=== PATIENT | female | born 1990 | race Caucasian/White ===

== ENCOUNTER 2018-07-10 10:05 | Outpatient (CLI) | payer OTHER, SELFPAY ==
--- NOTE | 2018-07-10 10:36 | PC.NURSE ---
HERE FOR [facility] PRE EMPLOYMENT PHYSICAL
== END 2018-07-10 11:24 | disposition home or self-care (01) ==
PROVIDERS: Visit Provider Nurse Practitioner Family
DX: Z00.00 Encounter for general adult medical examination without abnormal findings (principal)

== ENCOUNTER → 2019-04-30 07:42 | Outpatient (CLI) | payer OTHER, SELFPAY ==
--- NOTE | 2019-04-30 07:59 | CT_ITS ---
PROCEDURE: CT SINUS WO CON CLINICAL HISTORY: POST NASAL DRIP,CHRONIC RHINITIS Chronic sinusitis COMPARISON: No exams were available for comparison TECHNIQUE: Axial images obtained with sagittal and coronal reformats. All CT scans at the facility use one or more dose reduction, viz: automated exposure control, ma/kV adjustment per patient size (including targeted exams where dose is matched to indication, i.e. head), or iterative reconstruction technique. FINDINGS: There is a small opacified air cell in the right frontal ethmoid region. There is a somewhat lobular area of mucosal thickening involving the floor the left maxillary sinus measuring 2.6 cm AP and 2 cm transverse and 1.7 cm cephalad caudad which may represent a retention cyst. No air-fluid levels are evident. There is mild rightward nasal septal deviation. There are small bilateral autumn bullosa. The ostiomeatal complexes are patent. No bony destructive lesion. No nasal mass evident. The orbits have an unremarkable appearance. Scattered small nodes are present in the neck. The TMJs are unremarkable IMPRESSION: 1. Left maxillary sinus retention cyst. 2. Rightward nasal septal deviation with small bilateral autumn bullosa 3. Minimal opacification of the right frontal ethmoid sinus. Dictated by: Romeo Pabon MD 05/01/2019 08:58 Electronically signed by Romeo Pabon MD in [place] 05/01/2019 08:58
== END ==
PROVIDERS: Visit Provider Allergy & Immunology
DX: J32.9 Chronic sinusitis, unspecified (principal)
CPT/HCPCS: 70486

== ENCOUNTER → 2019-07-06 10:03 | Outpatient (POV) | payer OTHER, SELFPAY | PROVIDERS: Visit Provider Otolaryngology | DX: Z00.00 Encounter for general adult medical examination without abnormal findings (principal) ==

== ENCOUNTER 2020-11-18 09:02 | Emergency (ER) | payer BC, SELFPAY ==
--- NOTE | 2020-11-18 09:28 | HMH.EDUTC ---
[facility] [place] Disposition Clinical Impression: Right conjunctivitis Qualifiers: Conjunctivitis type: acute Acute conjunctivitis type: unspecified Qualified Code(s): H10.31 - Unspecified acute conjunctivitis, right eye Disposition: Home, Self-Care Condition on Discharge: Good Instructions: Conjunctivitis, DI for Conjunctivitis Additional Instructions: Use the eye drops as directed. Strict hand washing in the house hold, because conjunctivitis is very contagious. Follow up with your regular doctor. GO TO THE ER FOR ANY WORSENING SYMPTOMS OR CONCERNS Prescriptions: Sulfacetamide Sodium [Bleph-10] 1 drp EYE-BOTH Q3H 7 Days #1 bottle Transmission Status: Received by [facility] Referrals: Provider,Referral, [Primary Care Provider] - Time of Disposition: 09:33 Medical Decision Making - Medical Records Medical records reviewed: No: I reviewed the patient's medical records. - William Inquiry Pt receiving controlled substance: No Vital Signs: 11/18/20 09:41 11/18/20 09:45 Temperature 97.8 F 97.8 F Temperature Source Oral Pulse Rate 85 Pulse Rate [Left] 85 Respiratory Rate 17 17 Blood Pressure 116/85 Blood Pressure [Right Arm] 116/85 Blood Pressure Mean [Right Arm] 95 02 Sat by Pulse Oximetry 97 [facility] [place] HPI - General Stated complaint: red discharge right eye Time Seen by Provider: 11/18/20 09:28 - History of Present Illness Provider Complaint: She states that she woke up this morning with her right eye matted together. Since then she has been having clear drainage from the eye. She denies any eye pain. She denies any foreign body in the eye. She states that she is seeing normally, other than the increased drainage from that eye. - Related Data Home Medications Medication Instructions Recorded Confirmed levomefolate calcium 7.5 mg tablet 7.5 mg PO DAILY 03/15/19 03/15/19 albuterol sulfate 90 mcg/actuation INHALATION 07/20/19 07/20/19 aerosol inhaler escitalopram oxalate 20 mg tablet 10 mg PO DAILY tab 07/20/19 07/20/19 fluticasone propionate 50 INTRANASAL 07/20/19 07/20/19 mcg/actuation nasal spray,suspension levomefolate calcium 15 mg tablet 15 mg PO DAILY tab 07/20/19 07/20/19 omeprazole 20 mg capsule,delayed 20 mg PO DAILY cap 07/20/19 07/20/19 release Previous Rx's Medication Instructions Recorded amoxicillin 500 mg capsule 500 mg PO Q12H 10 Days #20 cap 07/20/19 prednisone 20 mg tablet 20 mg PO BID PRN 5 Days #10 tab 07/20/19 Sulfacetamide Sodium [Bleph-10] 1 drp EYE-BOTH Q3H 7 Days #1 bottle 11/18/20 Allergies Allergy/AdvReac Type Severity Reaction Status Date / Time NO KNOWN ALLERGIES Allergy Uncoded 03/15/19 12:16 [facility] History - Hepatitis A Screen Attestation statement:: This patient has been screened for Hepatitis A risk factors. I have reviewed the patient's past medical history: Yes Medical History: Reports:: Anxiety, Asthma, Depression, Gastroesophageal Reflux Disease(GERD) Denies:: Diabetes Mellitus Type 1, Diabetes Mellitus Type 2 Other Medical History: Reports: Other Other Surgeries: Yes: Other Fractures: No Comment: repair of wrist fracture. - Social History Smoking Status: Never smoker Alcohol Intake: never Substance Use Type: denies use Occupational Status: employed Housing: house - Psychiatric History Pschychiatric History:: Reports:: Anxiety, Depression Family Hx:: Hypertension, Cancer, Stroke, Hyperlipidemia, Diabetes ROS Obtained: Yes All systems reviewed & no additional complaints - Constitutional Constitutional: Denies chills, Denies fever(s) - Eyes Eyes: Reports as per HPI, Denies blurry vision, Denies change in vision, Denies diplopia - ENT Ears, Nose, Mouth, and Throat: Denies sore throat - Cardiovascular Cardiovascular: Denies chest pain - Respiratory Respiratory: Denies chest congestion, Denies cough, Denies dyspnea, Denies stridor, Denies wheezing Physical Exam - General General nery
[2020-11-18 09:41] VITALS: BP 116/85; PULSE 85; RESP 17; TEMP 36.6; O2SAT 97; BMI 26.4
[2020-11-18 09:45] VITALS: BP 116/85; PULSE 85; RESP 17; TEMP 36.6; O2SAT 97
== END 2020-11-18 09:45 | disposition home or self-care (01) ==
PROVIDERS: Emergency Provider Nurse Practitioner Family
DX: H10.31 Unspecified acute conjunctivitis, right eye (principal)
CPT/HCPCS: 99202; G0463

== ENCOUNTER 2021-04-27 09:03 | Emergency (ER) | payer BC, SELFPAY ==
[2021-04-27 09:23] VITALS: BP 134/94; PULSE 101; RESP 16; TEMP 36.8; O2SAT 99; BMI 25.8
[2021-04-27 09:25] VITALS: BP 134/94; PULSE 101; RESP 16; TEMP 36.8
[2021-04-27 09:28] LABS: UTC Strep Screen (Rapid) Negative (Negative)
--- NOTE | 2021-04-27 09:38 | HMH.EDUTC ---
[facility] [place] Clinical Impression: Pharyngitis Qualifiers: Pharyngitis/tonsillitis etiology: unspecified etiology Qualified Code(s): J02.9 - Acute pharyngitis, unspecified Disposition: Home, Self-Care Condition on Discharge: Good Instructions: Strep Throat, DI for Strep Throat Additional Instructions: *Monitor Temp, Over the counter Motrin or Tylenol as directed/as needed Tylenol every 4 hours and Motrin every 6 hours (as long as your family doctor has told you that you can take it) for fever or pain. and straight to ER if unable to lower temp less than 101.0 after medication given *Warm salt water gargles may help to soothe the throat *Throat Lozenges *Warm fluids like tea with honey may help to soothe the throat *Sleep elevated *Humidifier/Vaporizer *Flonase 2 sprays in each nostril daily but be aware that it may take 2-3 days before you notice improvement Take medication as prescribed Your throat swab was sent for culture. Those results are typically sent to your primary care. Be sure to follow up in 2-3 days with your family doctor/primary care physician if no improvement so they can review those result and treat if necessary. If you don?t have a primary care doctor, I recommend you get one but in the mean time, you will have to return to a walk in clinic Follow up IMMEDIATELY for new or worsening symptoms or no Noticeable improvement over the next 48-72 hours. 911 for difficulty breathing or swallowing Prescriptions: Fluticasone Propionate [Flonase 50mcg nasal spray 16gm] 1 spr NS DAILY #1 each Transmission Status: Pending to [facility] Cefdinir [Omnicef 300mg Capsule] 300 mg PO BID #20 cap Transmission Status: Pending to [facility] Referrals: Provider,Referral, [Primary Care Provider] - As needed Time of Disposition: 09:46 Medical Decision Making - William Inquiry Pt receiving controlled substance: No William was queried for this patient: No Vital Signs: 04/27/21 09:23 04/27/21 09:25 Temperature 98.2 F 98.2 F Temperature Source Oral Pulse Rate 101 H Pulse Rate [Left] 101 H Respiratory Rate 16 16 Blood Pressure 134/94 H Blood Pressure [Right Arm] 134/94 H Blood Pressure Mean [Right Arm] 107 02 Sat by Pulse Oximetry 99 - Lab Data Lab results reviewed: Yes: I reviewed the patient's lab results. Lab Results 04/27/21 09:26: Strep Scn Rapid Clinic Negative Orders (Tests/Meds): ORDERS Category Date Time Status Strep Screen Confirmation Stat Micro 04/27/21 09:26 Received [facility] [place] - General Stated complaint: sore throat, cough Time Seen by Provider: 04/27/21 09:38 Mode of Arrival: Ambulatory Source of Information: Patient Limitations: No Limitations Description of Symptoms (Recalled from Triage Doc. by RN): sore throat HEENT Symptoms (Recalled from RN notes): Yes (sore throat) Resp Symptoms (Recalled from RN notes): No Skin Symptoms (Recalled from RN notes): No MS Symptoms (Recalled from RN notes): No Functional Status (Recalled from RN notes): na - History of Present Illness Provider Complaint: Patient states that she has been having sore scratchy throat for a couple days then she noticed some white patchy like areas on the her throat and thinks she may have strep throat so she came in to get tested - Related Data Home Medications Medication Instructions Recorded Confirmed levomefolate calcium 7.5 mg tablet 7.5 mg PO DAILY 03/15/19 03/15/19 albuterol sulfate 90 mcg/actuation INHALATION 07/20/19 07/20/19 aerosol inhaler escitalopram oxalate 20 mg tablet 10 mg PO DAILY tab 07/20/19 07/20/19 fluticasone propionate 50 INTRANASAL 07/20/19 07/20/19 mcg/actuation nasal spray,suspension levomefolate calcium 15 mg tablet 15 mg PO DAILY tab 07/20/19 07/20/19 omeprazole 20 mg capsule,delayed 20 mg PO DAILY cap 07/20/19 07/20/19 release Previous Rx's Medication Instructions Recorded amoxicillin 500 mg capsule 500 mg PO Q12H
== END 2021-04-27 09:55 | disposition home or self-care (01) ==
PROVIDERS: Emergency Provider Nurse Practitioner
DX: J02.9 Acute pharyngitis, unspecified (principal); K21.9 Gastro-esophageal reflux disease without esophagitis; F41.8 Other specified anxiety disorders
CPT/HCPCS: 87880; 99202; G0463

== ENCOUNTER 2021-12-22 07:59 | Emergency (ER) | payer BC, SELFPAY ==
[2021-12-22 08:00] VITALS: BP 134/92; PULSE 91; RESP 18; TEMP 36.8; O2SAT 100; BMI 26.6
[2021-12-22 08:23] LABS: Apearance,Urine Clear (Clear); Bilirubin,Urine Negative (Negative); Blood, Urine Negative (Negative); Color,Urine Yellow (Yellow); Glucose,Urine (UA) Negative (Negative); Ketones,Urine Negative (Negative); PH,Urine 5.5 (5.0-8.5); Protein,Urine Negative (Negative); Specific Gravity, Urine 1.005 (1.005-1.030); UTC Leukocyte Esterase,Urine Trace (Negative); UTC Nitrate,Urine Negative (Negative); Urobilinogen,Urine 0.2 EU/dl (0.2)
[2021-12-22 08:31] VITALS: BP 134/92; PULSE 91; RESP 18; TEMP 36.8; O2SAT 100
--- NOTE | 2021-12-22 09:08 | HMH.EDUTC ---
[facility] [place] Dis[place] Clinical Impression: Burn from the sun UTI (urinary tract infection) Qualifiers: Urinary tract infection type: acute cystitis Hematuria presence: without hematuria Qualified Code(s): N30.00 - Acute cystitis without hematuria Disposition: Home, Self-Care Condition on Discharge: Good Instructions: Urinary Tract Infection, How to Avoid Sunburn, DI for Sunburn Additional Instructions: [place] 1.Place a cool compress on sunburned skin for immediate sunburn relief. 2. Take a cool shower or bath to cool your sunburned skin. Check out these natural bath therapies to soothe sunburn pain and other symptoms. 3. Use lotions that contain aloe Vera to soothe and moisturize sunburnt skin. Some aloe products contain lidocaine, an anesthetic that can help relieve sunburn pain. Aloe Vera is also a good moisturizer for peeling skin. 4. Hydrate: Drink lots of water, juice, or sports drinks. Your skin is dry and dehydrated. Replacing lost body fluids will help your skin heal from sunburn more quickly. 5. apply cream twice a day UTI 1 increase fluid intake 2. void after intercourse 3. wear cotton underwear 4 take antibiotics as ordered Prescriptions: cephALEXin [Cephalexin 500mg Tab] 500 mg PO BID 7 Days #14 tab Transmission Status: Pending to [id number] predniSONE [Prednisone 20mg Tab] 20 mg PO BID #10 tab Transmission Status[facility] Referrals: Provider,Referral, [Primary Care Provider] - Time of Disposition: 09:20 Medical Decision Making - William Inquiry Pt receiving controlled substance: No Vital Signs: 12/22/21 08:00 12/22/21 08:31 Temperature 98.2 F 98.2 F Temperature Source Oral Pulse Rate 91 H Pulse Rate [Left Brachial] 91 H Respiratory Rate 18 18 Blood Pressure 134/92 H Blood Pressure [Left Arm] 134/92 H Blood Pressure Mean [Left Arm] 106 Blood Pressure Source [Left Arm] Automatic Cuff Blood Pressure Position [Left Arm] Sitting 02 Sat by Pulse Oximetry 100 Oxygen Delivery Method Room Air - Lab Data Lab Results 12/22/21 08:22: Urine Color Yellow, Urine Appearance Clear, Urine pH 5.5, Ur Specific [place] 1.005, Urine Protein Negative, Urine Glucose (UA) Negative, Urine Ketones Negative, Urine Blood Negative, Urine Nitrate Negative, Urine Bilirubin Negative, Urine Urobilinogen 0.2, Ur Leukocyte Esterase Trace Orders (Tests/Meds): ED MEDICATIONS Discontinued Medications Generic Name Dose Route Start Last Admin Trade Name Shila PRN Reason Stop Dose Admin Silver Sulfadiazine 1 gm 12/22/21 08:33 Silver Sulfadiazine Cream 50gm TP 12/22/21 08:34 ONCE ONE ORDERS Category Date Time Status Urine Culture Stat Micro 12/22/21 08:22 Received [facility] [place] HPI - General Chief complaint: Urgent [facility] Stated complaint: sunburn Time Seen by Provider: 12/22/21 08:25 Mode of Arrival: Ambulatory Source of Information: Patient Limitations: No Limitations Description of Symptoms (Recalled from Triage Doc. by RN): PATIENT C/O SUNBURN SINCE FRIDAY, WHICH HAS GOTTEN WORSE TO RLE. SHE ALSO THINKS SHE HAS A UTI HEENT Symptoms (Recalled from RN notes): No Resp Symptoms (Recalled from RN notes): No Skin Symptoms (Recalled from RN notes): Yes MS Symptoms (Recalled from RN notes): No Functional Status (Recalled from RN notes): WNL - History of Present Illness Provider Complaint: 31 yr old female presents for freq, urgency,painful urination and sunburn for 3 days but worse in swelling and redness to legs - Related Data Home Medications Medication Instructions Recorded Confirmed omeprazole 20 mg capsule,delayed 20 mg PO DAILY cap 07/20/19 12/22/21 release Cetirizine HCl [Zyrtec 10mg Tab*] 10 mg PO DAILY 12/22/21 12/22/21 Previous Rx's Medication Instructions Recorded cephALEXin [Cephalexin 500mg Tab] 500 mg PO BID 7 Days #14 tab 12/22/21 predniSONE [Prednisone 20mg 20 mg PO BID #10 tab 12/22/21
== END 2021-12-22 09:24 | disposition home or self-care (01) ==
PROVIDERS: Emergency Provider Nurse Practitioner Family
DX: L55.9 Sunburn, unspecified (principal); N39.0 Urinary tract infection, site not specified
CPT/HCPCS: 81003; 87086; 99212; G0463

== ENCOUNTER 2024-04-12 20:40 | Emergency (ER) | payer BC, SELFPAY ==
[2024-04-12] VITALS (7 sets, daily range): BP systolic 126–142; BP diastolic 89–105; PULSE 84–99; RESP 18; TEMP 36.4–36.8; O2SAT 96–99; BMI 25.8
--- NOTE | 2024-04-12 21:14 | CT_ITS ---
PROCEDURE INFORMATION: Exam: CT Abdomen And Pelvis Without Contrast Exam date and time: 04/12/2024 10:03 PM Age: 33 years old Clinical indication: Abdominal pain; Flank; Left; Additional info: L flank pain TECHNIQUE: Imaging protocol: Computed tomography of the abdomen and pelvis without contrast. Radiation optimization: All CT scans at this facility use at least one of these dose optimization techniques: automated exposure control; mA and/or kV adjustment per patient size (includes targeted exams where dose is matched to clinical indication); or iterative reconstruction. COMPARISON: CT ABDOMEN PELVIS WO CON 04/12/2024 10:03 PM FINDINGS: Lungs: No focal abnormalities at the lung bases. Esophagus: The esophagus is normal. Liver: The liver is normal. Gallbladder and biliary ducts: The gallbladder is normal. Pancreas: Pancreas appears normal. Spleen: Spleen is normal Adrenal glands: The adrenal glands appear normal. Kidneys and ureters: There is a 3 mm nonobstructing stone in the right kidney. Mild prominence of the intrarenal collecting structures and renal pelvis of the left kidney coronal image 1001/49. Stomach and bowel: Nonspecific bowel gas pattern. Retained stool in the colon. No secondary signs of appendicitis. Rounded high density in the stomach image 3/15. Appendix: See Stomach and bowel finding. Intraperitoneal space: Unremarkable. No free air. No significant fluid collection. Vasculature: Unremarkable. No abdominal aortic aneurysm. Lymph nodes: No free air or fluid or adenopathy. Urinary bladder: The bladder is normal. Reproductive: Enlarged uterus 10.5 x 10.8 x 10.6 cm. The uterus is markedly enlarged compared with 06/14/2019. Bones/joints: Unremarkable. No acute fracture. Soft tissues: Unremarkable. IMPRESSION: 1. No free air or fluid or adenopathy. 2. There is a 3 mm nonobstructing stone in the right kidney. 3. Enlarged uterus 10.5 x 10.8 x 10.6 cm. The uterus is markedly enlarged compared with 06/14/2019. MRI recommended to further delineate this finding and determine if this represents fibroids or a more aggressive process. 4. Mild prominence of the intrarenal collecting structures and renal pelvis of the left kidney coronal image 1001/49. There may be some extrinsic compression left ureter due to the large uterus which is eccentrically expanded towards the left with marked distortion of the bladder base image 3/96. 5. Nonspecific bowel gas pattern. Retained stool in the colon. No secondary signs of appendicitis. 6. Rounded high density in the stomach image 09/11. Clinical correlation for ingested high-density material.
--- NOTE | 2024-04-12 21:14 | CT_ITS ---
PROCEDURE INFORMATION: Exam: CT Lumbar Spine Without Contrast Exam date and time: 04/12/2024 10:06 PM Age: 33 years old Clinical indication: Low back pain TECHNIQUE: Imaging protocol: Computed tomography of the lumbar spine without contrast. Radiation optimization: All CT scans at this facility use at least one of these dose optimization techniques: automated exposure control; mA and/or kV adjustment per patient size (includes targeted exams where dose is matched to clinical indication); or iterative reconstruction. COMPARISON: CT ABDOMEN PELVIS WO CON 04/12/2024 10:03 PM FINDINGS: Bones/joints: No acute fracture. Normal alignment. No significant disc bulge or herniation. No severe spinal canal stenosis. No significant neural foraminal narrowing. Soft tissues: Unremarkable. IMPRESSION: No acute findings.
[2024-04-12] MEDS: KETOROLAC 30MG/ML VIAL 15 MG IV (21:35)
[2024-04-12] MEDS: ACETAMINOPHEN 500MG TAB 1000 MG PO (21:35)
[2024-04-12] MEDS: ONDANSETRON 4MG/2ML VIAL 4 MG IV (21:35)
[2024-04-12] MEDS: METHOCARBAMOL 500MG TABLET 500 MG PO (21:35)
[2024-04-12] MEDS: LIDOCAINE 5% TRANSDERMAL PATCH 1 EACH TP (21:35)
[2024-04-12 21:45] LABS: Basophils # 0.1 K/mm3 (0-0.2); Basophils % 0.5 % (0.1-2.0); Eosinophils # 0.1 K/mm3 (0.0-0.4); Eosinophils % 0.7 % (0.1-12.0); Hematocrit 39.6 % (37.0-47.0); Hemoglobin 13.8 g/dL (12.2-16.2); Lymphocytes # 1.5 K/mm3 (0.7-4.5); Lymphocytes % 12.3 % (10-50); Mean Corpuscular HGB Conc 34.8 g/dL (31.8-35.4); Mean Corpuscular Hemoglobin 31.6 pg (27.0-31.2); Mean Corpuscular Volume 90.8 fl (81-99); Mean Platelet Volume 7.6 fl (7.4-10.4); Monocytes # 0.5 K/mm3 (0.1-1.0); Monocytes % 4.3 % (1.7-9.3); Neutrophils # 10.1 K/mm3 (1.8-7.8); Neutrophils % 82.3 % (37.0-80.0); Platelet Count 316 K/mm3 (142-424); Red Blood Count 4.37 M/mm3 (4.20-5.40); Red Cell Distribution Width 14.1 % (11.5-17.5); White Blood Count 12.3 K/mm3 (4.8-10.8)
[2024-04-12 21:49] LABS: Albumin Level 4.9 g/dl (3.5-5.0); Chloride 103 mmol/L (98-107); Potassium 3.5 mmoL/L (3.5-5.1); Sodium 138 mmol/L (136-145)
--- NOTE | 2024-04-12 21:50 | ED_ITS ---
Discharge Plan Disposition Patient Disposition: Home, Self-Care Condition: Good Prescriptions Prescriptions: New ketorolac 10 mg tablet 10 mg PO Q8H PRN (Reason: pain) Qty: 14 0RF methocarbamol 750 mg tablet 750 mg PO Q8H PRN (Reason: pain) Qty: 20 0RF No Action omeprazole 20 mg capsule,delayed release(DR/EC) 20 mg PO DAILY Patient Comments: TAKE 1 CAPSULE BY MOUTH ONCE DAILY cetirizine 10 MG tablet 10 mg PO DAILY prednisone 20 MG tablet 20 mg PO BID Qty: 10 0RF cephalexin 500 MG tablet 500 mg PO BID 7 Days Qty: 14 0RF Referrals Follow up/Referrals: Ginger Sanchez, [Staff Physician] - See instructions Ac Schmidt [Primary Care Provider] - See instructions Activity Restrictions/Add. Instructions Additional Instructions/Restrictions: You were evaluated in the emergency department today. At this time, we feel that your back pain is related to musculoskeletal strain/sprain. Please crop picker your prescriptions at the pharmacy and take them as needed for symptoms. You may also take Tylenol every 4-6 hours at home as needed for pain. Follow-up closely with your primary care provider for reassessment. Also recommend close follow-up with gynecology, as you were found to have an enlarged uterus on CT scan. Clinical Impressions Clinical Impression: Acute left-sided low back pain, Groin pain, Bulky or enlarged uterus Stand Alone Forms Stand Alone Forms: Work/School Release Instructions Patient Instructions: DI for Low Back Pain Print Language Print Language: Tamazight Discharge ED Provider: Denisa Canseco General Adult HPI General Chief complaint: Back Pain/Injury Stated complaint: back/abd/pelvic spasms with pain Time Seen by Provider: 04/12/24 20:50 Mode of Arrival: Ambulatory Source of Information: Patient Limitations: No Limitations Description of Symptoms (Recalled from ER Triage Doc. by RN): pt reports approximately 1 hour ago she sat down on the toliet and felt a popping sensation in her laft flank now she is experiencing spasms in her back. she is also experiencing some vaginal pain but stated it feels like her normal menstrual symptoms as she is currently menstrating History of Present Illness HPI narrative: This patient is a 33-year-old female presenting to the emergency department for evaluation with concern for low back pain. Patient states that today, she had been having some groin pain which she felt was likely related to period cramps. She states that about an hour prior to arrival, she sat on the toilet and felt a popping sensation in her left flank. Now she is experiencing spasms in her back that are severe. The pain is so severe that she fell like she had to vomit and have a bowel movement, and she did vomit prior to arrival. She states she vomited up her entire meal. She also has some groin and vaginal pain which she states feels like her menstrual period symptoms. Pain is currently a 9 out of 10. She denies any fevers, chills, numbness, tingling, saddle anesthesia, incontinence, urinary retention, or other concerns. She is still able to ambulate. Related Data Home Medications ?Medication ?Instructions ?Recorded ?Confirmed omeprazole 20 mg capsule,delayed 20 mg PO DAILY GERD 07/20/19 12/22/21 release cetirizine 10 mg tablet 10 mg PO DAILY Allergy symptoms 12/22/21 12/22/21 Previous Rx's ?Medication ?Instructions ?Recorded cephalexin 500 mg tablet 500 mg PO BID 7 days #14 tabs 12/22/21 prednisone 20 mg tablet 20 mg PO BID #10 tabs 12/22/21 ketorolac 10 mg tablet 10 mg PO Q8H PRN pain #14 tabs 04/12/24 methocarbamol 750 mg tablet 750 mg PO Q8H PRN pain #20 tabs 04/12/24 Allergies Allergy/AdvReac Type Severity Reaction Status Date / Time No Known Allergies Allergy Verified 12/22/21 08:28 [facility] Disclaimer: The information contained in this section may have been updated after the patient was seen, as this information can be updated by other users. Social History Smoking Status: Never smoker second hand exposure: No alcohol intake: never substance use type: denies use current occupational status: other Travel in the last 8 weeks: None housing: house Other Medical History Have you received the Flu Vaccine for this season: Yes Have you received the Pneumonia Vaccine: No ROS Obtained: Yes All systems reviewed & no additional complaints except as documented Physical Exam General General appearance: alert and in no apparent distress Head Head exam: atraumatic and normocephalic Eye Eye exam: Present normal appearance, PERRL and EOMI ENT ENT exam: Present normal exam, normal oropharynx, mucous membranes moist and normal external ear exam Neck Neck exam: Present normal inspection, full ROM and trachea midline; Absent tenderness Chest Chest inspection: Present normal inspection and symmetric chest wall rise; Absent tenderness Respiratory Respiratory exam: Present normal lung sounds bilaterally; Absent respiratory distress, wheezes, stridor or accessory muscle use Cardiovascular Cardiovascular exam: Present regular rate and normal rhythm Abdominal Exam Abdominal exam: Present soft; Absent distention, tenderness or guarding Extremities Exam Extremities exam: Present normal inspection, full ROM and normal capillary refill; Absent tenderness or edema Back Exam Back exam: Present full ROM and CVA tenderness (L) Neurological Exam Neurological exam: Present alert, oriented X3, CN II-XII intact and normal gait; Absent motor sensory deficit Psychiatric Psychiatric exam: Present normal affect and normal mood Skin Skin exam: Present warm and dry Medical Decision Making Medical Records Medical records reviewed: Yes I reviewed the patient's medical records. Screening: Per USPSTF and CDC recommendations, given the prevalence of disease in our region, it is our hospital?s policy to screen for HIV and viral Hepatitis for all patients aged 18 and over and those with ongoing risk factors. William Inquiry Pt receiving controlled substance: No Vital Signs: 04/12/24 20:49 04/12/24 21:00 04/12/24 21:30 Temperature 97.6 F Temperature Source Oral Pulse Rate 92 H 89 Pulse Rate [Right] 99 H Respiratory Rate 18 Blood Pressure 136/98 H 141/105 H Blood Pressure [Right Arm] 134/99 H Blood Pressure Mean 107 Blood Pressure Mean [Right Arm] 110 02 Sat by Pulse Oximetry 99 99 97 Oxygen Delivery Method Room Air 04/12/24 22:30 04/12/24 23:00 04/12/24 23:28 Temperature Temperature Source Pulse Rate 87 84 89 Pulse Rate [Right] Respiratory Rate Blood Pressure 134/89 126/89 142/90 H Blood Pressure [Right Arm] Blood Pressure Mean Blood Pressure Mean [Right Arm] 02 Sat by Pulse Oximetry 98 96 97 Oxygen Delivery Method Lab Data Lab results reviewed: Yes I reviewed the patient's lab results. Lab Results 04/12/24 21:30: WBC 12.3 H, RBC 4.37, Hgb 13.8, Hct 39.6, MCV 90.8, MCH 31.6 H, MCHC 34.8, RDW 14.1, Plt Count 316, MPV 7.6, Neut % (Auto) 82.3 H, Lymph % (Auto) 12.3, Dale % (Auto) 4.3, Eos % (Auto) 0.7, Baso % (Auto) 0.5, Neut # (Auto) 10.1 H, Lymph # (Auto) 1.5, [place] # (Auto) 0.5, Eos # (Auto) 0.1, Baso # (Auto) 0.1, Sodium 138, Potassium 3.5, Chloride 103, Carbon Dioxide 28, Anion Gap 10.5, BUN 9, Creatinine 0.70, Estimated Creat Clear 142, Estimated GFR 98, Est GFR ( Amer) 118, Glucose 109 H, Calcium 9.6, Total Bilirubin 0.6, AST 32, ALT 27, Alkaline Phosphatase 71, Total Protein 8.1, Albumin 4.9, Globulin 3.2, Albumin/Globulin Ratio 1.5, Lipase 49, Serum HCG, Qual Negative 04/12/24 22:55: Urine Color Yellow, Urine Appearance Clear, Urine pH 6.5, Ur Specific [place] 1.010, Urine Protein Negative, Urine Glucose (UA) Negative, Urine Ketones Negative, Urine Blood 3+ A, Urine Nitrate Negative, Urine Bilirubin Negative, Urine Urobilinogen 0.2, Ur Leukocyte Esterase Negative, Urine RBC 10-20, Urine WBC 3-5, Ur Squamous Epith Cells 5-10, Urine Bacteria 1+ 04/12/24 21:30 04/12/24 21:30 Orders (Tests/Meds): ED MEDICATIONS Discontinued Medications Generic Name Dose Route Start Last Admin Trade Name Shila PRN Reason Stop Dose Admin Acetaminophen 1,000 mg 04/12/24 21:14 04/12/24 21:35 Acetaminophen 500mg Tab PO 04/12/24 21:15 1,000 mg ONCE ONE Administration Ketorolac Tromethamine 15 mg 04/12/24 21:14 04/12/24 21:35 Ketorolac 30mg/Ml Vial IV 04/12/24 21:15 15 mg ONCE ONE Administration Lidocaine 1 each 04/12/24 21:14 04/12/24 21:35 Lidocaine 5% Transdermal Patch TP 04/12/24 21:15 1 each ONCE ONE Administration Methocarbamol 500 mg 04/12/24 21:15 04/12/24 21:35 Methocarbamol 500mg Tablet PO 10/14/24 21:16 500 mg ONCE ONE Administration Ondansetron HCl 4 mg 04/12/24 21:14 04/12/24 21:35 Ondansetron 4mg/2ml Vial IV 04/12/24 21:15 4 mg ONCE ONE Administration ORDERS Category Date Time Status CT abdomen pelvis wo con Stat Cat Scan 04/12/24 21:[address] lumbar spine wo con Stat Cat Scan 04/12/24 21:14 Completed CBC w/Auto Diff [Complete Blood Count Auto Diff] Stat Lab 04/12/24 21:30 Completed CMP [Comprehensive Metabolic Panel] Stat Lab 04/12/24 21:30 Completed Lipase Stat Lab 04/12/24 21:30 Completed Serum [HCG Qualitative, Serum] Stat Lab 04/12/24 21:30 Completed UA [Urinalysis and Microscopic] Stat Lab 04/12/24 22:55 Completed Urine Culture Stat Micro 04/12/24 22:55 Received Medical Decision Narrative: In summary, this patient is a 33-year-old female presenting to the Emergency Department for evaluation of low back/left-sided flank pain as well as groin pain. Differential diagnoses considered include but are not limited to ureterolithiasis, pyelonephritis, colitis, lumbar disc herniation, lumbar radiculopathy, musculoskeletal strain/sprain. Ruling out the most morbid conditions drove assessment. On exam, the patient has left CVA tenderness but otherwise exam is reassuring with no midline vertebral tenderness and no neurologic deficits. Doubt serious pathology such as spinal cord compression or cauda equina syndrome given reassuring neurologic exam and history. Workup included CBC, CMP, lipase, urinalysis, test, CT lumbar spine, and CT abdomen pelvis without IV contrast. She was given IV Toradol, oral Tylenol, IV Zofran, oral Robaxin, and topical Lidoderm patch for symptomatic improvement. I independently interpreted CT scan prior to the radiologist read and noted enlarged uterus without obvious hydronephrosis. Please see their read for final interpretation. Labs were obtained that demonstrated very mild leukocytosis without other acutely concerning abnormalities. Urine is positive for blood, but the patient notes that she is currently on her period. She denies any urinary symptoms. Urine culture was sent and is pending just to be on the safe side. On reassessment, the patient is resting comfortably with significantly improved symptoms. She states she is feeling a lot better. Radiology noted concerns for enlarged uterus which could have mass effect of the left ureter. Patient was notified of this and advised that she follow-up very closely with gynecology. Ultimately, I feel her back pain is likely musculoskeletal in nature given the nature of the injury and that her symptoms and exam. I do feel that she is appropriate for discharge home with close outpatient follow-up as well as prescriptions for Toradol and Robaxin to treat pain. She was given strict return precautions in addition to the instructions for close PHLEBOTOMY SERVICES REPRESENTATIVE follow-up. She was discharged after all questions were answered Critical Care Critical Care Time Critical Care Time: No
[2024-04-12 21:51] LABS: Blood Urea Nitrogen 9 mg/dl (7-17); Creatinine Clearance Estimated 142 mL/min (50-200); Estimated Glomerular Filt Rate 98 ml/min (>60); GFR (African American) 118 ML/MIN (>60)
[2024-04-12 21:52] LABS: Alanine Aminotransferase 27 U/L (12-78); Albumin/Globulin Ratio 1.5 (1.1-1.8); Alkaline Phosphatase 71 U/L (38-126); Anion Gap 10.5 mEq/L (5-15); Aspartate Amino Transferase 32 U/L (14-36); Bilirubin,Total 0.6 mg/dl (0.2-1.3); Calcium 9.6 mg/dl (8.4-10.2); Carbon Dioxide 28 mmol/L (22.0-30.0); Globulin 3.2 g/dL (1.3-3.2); Glucose 109 mg/dl (74-100); Lipase 49 U/L (23-300); Total Protein,Serum 8.1 g/dl (6.3-8.2)
[2024-04-12 21:55] LABS: HCG Qualitative, Serum Negative (Negative)
--- NOTE | 2024-04-12 22:05 | PC.NURSE ---
rounded on patient, family member in room, call light within reach. radiology arrived to take patient to radiology
[2024-04-12 22:58] LABS: Microscopic, Urine URINE MICROSCOPIC (MICROSCOPIC)
[2024-04-12 23:05] LABS: Appearance,Urine CLEAR (Clear); Bilirubin,Urine Negative (Negative); Blood, Urine 3+ (Negative); Color,Urine YELLOW (Yellow); Glucose,Urine (UA) Negative (Negative); Ketones,Urine Negative (Negative); Leukocyte Esterase,Urine Negative (Negative); Nitrate,Urine Negative (Negative); PH,Urine 6.5 (5.0-8.5); Protein,Urine Negative (Negative); Urobilinogen,Urine 0.2 EU/dl (0.2)
[2024-04-12 23:20] LABS: Bacteria,Urine 1+ /lpf
--- NOTE | 2024-04-16 07:36 | PC.NURSE ---
urine culture complete, no growth.
== END 2024-04-12 23:50 | disposition home or self-care (01) ==
PROVIDERS: Emergency Provider Emergency Medicine; PCP Family Medicine
DX: N85.2 Hypertrophy of uterus (principal); R10.30 Lower abdominal pain, unspecified; R10.9 Unspecified abdominal pain; M54.50 Low back pain, unspecified
CPT/HCPCS: 72131; 74176; 80053; 81001; 83690; 84703; 85025; 87086; 96374; 96375; 99284; J1885; J2405

== ENCOUNTER 2024-04-22 07:21 | Outpatient (CLI) | payer BC, SELFPAY ==
--- NOTE | 2024-04-22 07:23 | US_ITS ---
PROCEDURE: US TRANSVAGINAL CLINICAL INDICATION: Enlarged Uterus on CT Scan COMPARISON: CT CT ABDOMEN PELVIS WO CON from 04/12/2024 FINDINGS: Transvaginal sonographic images of the pelvis were obtained. UTERUS: 8.3cm x 10.1cmx 6.6 cm retroverted with a combined endometrial thickness of 14.3mm. There are at least 3 fibroids. Fibroid 1. 4.0 cm x 3.5 cm x 3.0 cm Fibroid 2. 5.2 cm x 3.9 cm x 6.1 cm Fibroid 3. 2.9 cm x 3.4 cm x 3.0 cm LEFT OVARY: 2.8 cmx1.3 cmx2.1cm with a volume of 4.1ml. RIGHT OVARY: 3.9 cmx 3.6 cmx3.0cm with a volume of 22.3ml. There are several small follicles in the right ovary. Both ovaries are seen and appear normal. Doppler flow to both ovaries are seen. There is a small amount of fluid in the cul-de-sac. IMPRESSION: 1. Retroverted, enlarged uterus with at least 3 fibroids. The fibroids measure 4 cm, 6.1 cm and 3.4 cm respectively. 2. The endometrium is thickened at 14.3 mm. It has a homogeneous appearance. 3. Both ovaries are seen and appear normal. Each ovary has a number of small follicles. 4. There is a small amount of fluid in the cul-de-sac. Dictated by: Dread Carter MD 04/22/2024 12:05 Dread Carter MD in OV 04/22/2024 12:05
== END 2024-04-22 23:59 | disposition home or self-care (01) ==
LOC: RAD 07:22
PROVIDERS: PCP Family Medicine; Visit Provider Obstetrics & Gynecology
DX: N85.2 Hypertrophy of uterus (principal)
CPT/HCPCS: 76830

== ENCOUNTER 2025-01-28 07:13 | Outpatient (CLI) | payer BC, SELFPAY ==
--- OUTSIDE RECORDS SUMMARY | 2025-01-28 07:17 | XMS_ITS | Clinical Summary ---
[facility] Organization [facility] Address [address] [place] [address] Care Team Providers Care Rn Telemetry Name Role Phone Unavailable Primary Care Provider Unavailabl e Social History Tobacco Use Types Packs/Day Years Used Date Smoking Tobacco: Never Assessed Abuse Screen Answer Date Recorded Unsafe at Home or Work/School Not on file Feels Threatened by Someone? Not on file 02/2023 Does Anyone Keep You from Co ntacting Others or Doint Things Outside the Home? Not on file 04/07/2023 Physical Sign of Abuse Present Not on file 1 Housing Stability Answer Date Recorded Current Living Arrangements Not on file 02/2023 Potentially Unsafe Housing Conditions Not on raudel e 04/07/2023 Family and Community Support Answer Rito e Recorded Help with Day-to-Day Activities Not on file 04/07/2023 Lonely or Isolated Not on file 04/07/2023 Employment Answer Date Recorded Do you want help finding or keeping work or a noni b? Not on file 04/07/2023 Disabilities Answer Date Recorded Concentrating, Remembering, or Making Decisions Difficulty Not on file 04/07/2023 Doing Errands Independently Difficulty Not on fi le 04/07/2023 Education Answer Date Recorded Help with school or training? Not on file Preferred Language Not on file 04/07/2023 Comments Unknown Sex and Gender Information Value Date Recorded Sex Assigned at Not on file Legal Sex Female 12:39 PM EDT Gender Identity Not on file Sexual Orientation Not on file Plan of Treatment Health Maintenance Due Date Last Done Comments ANNUAL PHYSICAL 1992 Annual Gynecologic Pelvic an d Breast Exam 1992 HEPATITIS C SCREENING 1992 TDAP/TD VACCINES (1 - Tdap) 2011 COVID-19 Vaccine (2023-2 5 season) 2024 INFLUENZA VACCINE 03/30/2025 Pneumococcal Vaccine 0-49 Aged Out No longer eligible based on patient's age to complete this topic
--- OUTSIDE RECORDS SUMMARY | 2025-01-28 07:17 | XMS_ITS | Clinical Summary ---
Author Organization [facility] Address [address] [place] [address] Care Team Providers Care Glass Furnace Operator Name Role Phone Unavailable Primary Care Provider Unavailabl e Social History Tobacco Use Types Packs/Day Years Used Date Smoking Tobacco: Never Assessed Comments Unknown Sex and Gender Information Value Date Recorded Sex Assigned at Not on file Legal Sex Female 7:52 PM EDT Gender Identity Not on file Sexual Orientation Not on file Last Filed Vital Signs Vital Sign Reading Time Taken Comments Blood Pressure - - Pulse - - Temperature - - Respiratory Rate - - Oxygen Saturation - - Inhaled Oxygen Concentration - - Weight 62.6 kg (138 lb) 10/19/2014 9:33 AM EDT Height 172.7 cm (5' 8 ) 10/19/2014 9:33 AM EDT Body Mass Index 20.98 10/19/2014 9:33 AM EDT Plan of Treatment Health Maintenance Due Date Last Done Comments [facility]-Depression Screening 1992 [facility]-Infant/Child/Adol SDOH Screenings 1992 [facility]-Varicella Vaccines (1 of 2 - 13+ 2-dose series) 2005 HPV Vaccines (1 - 3-dose series) 2007 [facility]- SDOH Screenings 2010 [facility]-Adult SDOH Screenings 2010 [facility]-DTaP,Tdap,and Td Vaccine s (1 - Tdap) 2011 [facility]-Hepatitis B Vaccines (1 of 3 - 19+ 3-dose series) 2011 [facility]-Pap Smear 2013 [facility]-Cervical Cancer Screening 2022 [facility]-HPV/Cotest 2022 [id number]-[id number] Vaccine (1 - 20 24-25 season) 2024 [facility]-Influenza Vaccine (#1) 2025 [facility]-Zoster Vaccines (1 of 2) 2042 [facility]-HIB Vaccines Aged Out No longer e ligible based on patient's age to complete this topic [facility]-Hepatitis A Vaccines Aged Out No longer eligible based on patient's age to complete this topic [facility]-IPV Vaccines Aged Out No longer e ligible based on patient's age to complete this topic [facility]-Pneumococcal Vaccine: Pediatrics (0 to 5 Years) and At-Risk Patients (6 to 49 Years) Aged Out No long er eligible based on patient's age to complete this topic [facility]-Rotavirus Vaccines Aged Out No lo nger eligible based on patient's age to complete this topic
--- OUTSIDE RECORDS SUMMARY | 2025-01-28 07:17 | XMS_ITS | Clinical Summary ---
Author Organization [facility] Address [address] [place] [phone] Phone Care Team Providers Care Hearing Aid Mechanic Name Role Phone Unavailable Primary Care Provider Unavailabl e Allergies No known active allergies Medications fluticasone propionate (FLONASE) 50 mcg/actuation Nasl [place], SuspensionIndicati ons:Dysfunction of right eustachian tube 2 Sprays by Nasal route daily. 1 g 5 2 Active albuterol (PROVENTIL HFA;VENTOLIN HFA) 90 mcg/actuation Inhl HFA Aerosol InhalerIndications :RAD (reactive airway disease), unspecified asthma severity, uncomplicated Inhale 2 Puffs into the lungs every 6 hours as needed for Wheezing. 1 Each 2 2 Active escitalopram oxalate (LEXAPRO) 10 mg Oral TabletIndications: Depression, unspecified depression type,Panic attacks,LAYNE (generalized anxiety disorder) Take 1 Tablet by mouth daily. 30 Tablet 5 3 Active Active Problems Problem Noted Date Diagnosed Date Acne 04/09/2010 Allergic rhinitis, cause unspecified Depressive disorder, not elsewhere classified Immunizations Immunization Administration Dates Next Due DTaP 08/10/1997, 4,1992,09/18,1992 Hepatitis B, Unspecified Formulation 08/29/2004, 12/27/2003,08/10/1997 HiB, Unspecified Formulation 08/16/1993, 1992,1992,07/24 IPV 08/10/1997, 4,1992,07/24 Influenza Vaccine Quadrivalent 03/30/2018 Influenza Vaccine, Unspecifi ed Formulation 04/02/2022,03/01/2016,01/24/2015,02/17 MMR 08/10/1997,06/07/1993 Meningococcal Polysaccharide 07/21/2010 Pfizer SARS-CoV-2 Vaccine 12 + Yrs (Purple Cap) 07/19/2020,06/28/2020 Tdap 03/08/2015,12/20/2006 Surgical History Surgery Date Site/Laterality Comments WRIST SURGERY 12/19/08 left wrist WRIST FRACTURE SURGERY unknown right Medical History Medical History Date Comments Chicken pox Family History Medical History Relation Name Comments Diabetes Maternal Aunt Diabetes Maternal Grandfather Diabetes Maternal Grandmother Other Mother Diabetes Paternal Grandmother Cancer Paternal Uncle Relation Name Status Comments Maternal Aunt Alive Maternal Grandfather Alive Maternal Grandmother Alive Mother Paternal Grandmother Alive Paternal Uncle Social History Tobacco Use Types Packs/Day Years Used Date Smoking Tobacco: Never Smokeless Tobacco: Never Tobacco Cessation:Counseling Given: Not Answered Alcohol Use Standard Drinks/Week Comments No 0 (1 standard drink = 0.6 oz pur e alcohol) Comments No Sex and Gender Information Value Date Recorded Sex Assigned at Not on file Legal Sex Female 3:46 AM EDT Gender Identity Not on file Sexual Orientation Not on file Obstetrics History Last Filed Vital Signs Vital Sign Reading Time Taken Comments Blood Pressure 114/68 05/22/2022 9:18 AM EST Pulse 72 05/22/2022 9:18 AM EST Temperature 36.5 C (97.7 F) 03/30/2018 2:37 PM EDT Respiratory Rate 16 03/30/2018 2:37 PM EDT Oxygen Saturation 98% 05/22/2022 9:18 AM EST Inhaled Oxygen Concentration - - Weight 74.8 kg (165 lb) 05/22/2022 9:18 AM EST Height 172.7 cm (5' 8 ) 05/22/2022 9:18 AM EST Body Mass Index 25.09 05/22/2022 9:18 AM EST Plan of Treatment Health Maintenance Due Date Last Done Comments Cervical Cancer Screening 2013 Pap Smear 2013 HPV/Pap Cotest 2022 Annual Wellness Exam 05/22/2023 05/22/2022 COVID-19 Vaccine ( season) 2024 07/31/2022, 05/15/2021, 07/19/2020, Additional history exists Influenza Vaccine (#1) 2025 , 03/30/2018, 02/20/2017, Additional history exists DTaP/TDaP/Td (8 - Td or Tdap) 03/08/2025 03/08/2015, 12/20/2006, 09/04/2004, Additional history exists Hepatitis B Vaccine Completed 08/29/2004, 12/27/2003, 08/10/1997 Meningococcal B Vaccine Aged Out No l onger eligible based on patient's age to complete this topic Pneumococcal Vaccine 0-49 Aged Out No longer eligible based on patient's age to complete this topic Goals Goal Patient Goal Type Associated Problems Recent Progress Patient-Stated? Author Eat better, exercise, reach an ideal body weight General No Cherie Aguayo LPN Insurance [facility]
--- NOTE | 2025-01-28 07:30 | US_ITS ---
PROCEDURE: US TRANSVAGINAL CLINICAL INDICATION: abnormal uterine bleeding COMPARISON: CT CT ABDOMEN PELVIS WO CON from 04/12/2024 US US TRANSVAGINAL from 04/22/2024 FINDINGS: Transvaginal and transabdominal sonographic images of the pelvis were obtained. UTERUS: 9.4cm x 8.1 cmx 8.1cm axial with a combined endometrial thickness of 12.7mm. Fibroid 1. 6.3 cm x 6.6 cm x 5.8 cm. Right side of uterus Fibroid 2. 5.2 cm x 5.0 cm x 6.2 cm. Left-side of uterus Fibroid 3. 3.0 cm x 3.3 cm x 4.4 cm. Left side of uterus LEFT OVARY: 5.6cmx2.7 cmx2.4cm with a volume of 19.1ml. RIGHT OVARY: 3.7 cmx 2.1cmx2.8 cm with a volume of 11.6ml. Both ovaries are seen and appear normal. Doppler flow to both ovaries are seen. There is a small amount of fluid in the cul-de-sac. IMPRESSION: 1. Axial uterus with at least 3 large fibroids. The endometrium measures 12.7 mm. Difficult exam due to the large fibroids. 2. The fibroids measure 6.6 cm, 6.2 cm, 4.4 cm. The fibroids have increased in size since the last ultrasound in March 2024. 3. Both ovaries are seen and appear normal. There are small follicles on each ovary. 4. There is a small amount of fluid in the cul-de-sac. Dictated by: Dread Carter MD 01/29/2025 18:50 Dread Carter MD in [facility] 01/29/2025 18:50
== END 2025-01-28 23:59 | disposition home or self-care (01) ==
LOC: RAD 07:14
PROVIDERS: PCP Family Medicine; Visit Provider Obstetrics & Gynecology
DX: D25.9 Leiomyoma of uterus, unspecified (principal); N83.02 Follicular cyst of left ovary; N83.01 Follicular cyst of right ovary
CPT/HCPCS: 76830

== ENCOUNTER 2025-06-01 12:00 | Outpatient (CLI) | payer BC, SELFPAY ==
[2025-06-01 08:38] VITALS: BMI 28.5
--- OUTSIDE RECORDS SUMMARY | 2025-06-01 12:03 | XMS_ITS | Clinical Summary ---
[facility] Organization [facility] Address [address] [place] [id number] Care Team Providers Care Teletypesetter Name Role Phone Unavailable Primary Care Provider [...] 1992 TDAP/TD VACCINES (1 - Tdap) 2011 INFLUENZA VACCINE 01/28/2025 Pneumococcal Vaccine 0-49 Aged Out No longer eligible based on patient's age to complete this topic
--- OUTSIDE RECORDS SUMMARY | 2025-06-01 12:03 | XMS_ITS | Clinical Summary ---
Author Organization [facility] Address [address] [place] [phone] Phone Care Team Providers Care Wire Chief Name Role Phone Unavailable Primary Care Provider Unavailabl e Allergies No known active allergies Medications fluticasone propionate (FLONASE) 50 mcg/actuation Nasl [place], SuspensionIndicati ons:Dysfunction of right eustachian tube 2 [...] Exam 05/22/2023 05/22/2022 COVID-19 Vaccine ( season) 2025 07/31/2022, 05/15/2021, 07/19/2020, Additional history exists Influenza [...] weight General No Cherie Aguayo LPN Insurance PPO
--- OUTSIDE RECORDS SUMMARY | 2025-06-01 12:03 | XMS_ITS | Clinical Summary ---
Author Organization [facility] Address [address] [place] [address] Care Team Providers Care Digital Media Designer Name Role Phone Unavailable Primary Care Provider [...] Date Last Done Comments [facility]-Depression Screening 1992 [facility]-/Child/Adol SDOH Screenings 1992 [facility]-Varicella Vaccines (1 of 2 - 13+ 2-dose series) 2005 [facility]- SDOH Screenings 2010 [facility]-Adult SDOH Screenings 2010 [facility]-DTaP,Tdap,and Td Vaccine s (1 - Tdap) 2011 [facility]-Hepatitis B Vaccines (1 of 3 - 19+ 3-dose series) 2011 [facility]-Pap Smear 2013 HPV Vaccines (1 - 3-dose SCD M series) 2019 [facility]-Cervical Cancer Screening 2022 [facility]-HPV/Cotest 2022 [id number] Vaccine (1 - 20 25-26 season) 2025 [facility]-Influenza Vaccine (#1) 2025 [facility]-Zoster Vaccines (1 [...]
--- NOTE | 2025-06-01 12:22 | ECG_ITS ---
APPROVED REPORT Exam: Resting ECG HR:76 bpm ECG Measurements Heart Rate 76 AXES HI 159 P 34 QRSd 72 QRS 9 QT 344 T 30 QTc 374 Conclusion SINUS RHYTHM POSSIBLE LEFT ATRIAL ENLARGEMENT [-0.1mV P-WAVE IN V1/V2] LOW QRS VOLTAGE IN PRECORDIAL LEADS [QRS DEFLECTION < 1.0 mV IN CHEST LEADS] BORDERLINE ECG UNCONFIRMED REPORT Electronically signed by : Antonio Root MD 06/02/2025 08:28:03
[2025-06-01 12:45] LABS: Hematocrit 39.3 % (37.0-47.0); Hemoglobin 12.5 g/dL (12.2-16.2); Immature Granulocytes % 0.1 %; Mean Corpuscular HGB Conc 31.8 g/dL (31.8-35.4); Mean Corpuscular Hemoglobin 29.1 pg (27.0-31.2); Mean Corpuscular Volume 91.6 fl (81-99); Nucleated Red Blood Cells % 0 %; Platelet Count 404 K/mm3 (142-424); Red Blood Count 4.29 M/mm3 (4.20-5.40); Red Cell Distribution Width-SD 51.9 fL; White Blood Count 6.9 K/mm3 (4.8-10.8)
[2025-06-01 12:54] LABS: Alanine Aminotransferase 26 U/L (12-78); Albumin Level 4.9 g/dl (3.5-5.0); Albumin/Globulin Ratio 1.5 (1.1-1.8); Alkaline Phosphatase 81 U/L (38-126); Anion Gap 10.9 mEq/L (5-15); Aspartate Amino Transferase 31 U/L (14-36); Bilirubin,Total 0.4 mg/dl (0.2-1.3); Blood Urea Nitrogen 10 mg/dl (7-17); Calcium 9.7 mg/dl (8.4-10.2); Carbon Dioxide 26 mmol/L (22.0-30.0); Chloride 100 mmol/L (98-107); Creatinine Clearance Estimated 154 mL/min (50-200); Creatinine,Serum 0.70 mg/dl (0.52-1.04); Estimated Glomerular Filt Rate 96 ml/min (>60); GFR (African American) 117 ML/MIN (>60); Globulin 3.2 g/dL (1.3-3.2); Glucose 88 mg/dl (74-100); Potassium 3.9 mmoL/L (3.5-5.1); Sodium 133 mmol/L (136-145); Total Protein,Serum 8.1 g/dl (6.3-8.2)
== END 2025-06-01 23:59 | disposition home or self-care (01) ==
LOC: PREOP 12:01
PROVIDERS: Visit Provider Obstetrics & Gynecology
DX: Z01.810 Encounter for preprocedural cardiovascular examination (principal); Z01.812 Encounter for preprocedural laboratory examination; D25.9 Leiomyoma of uterus, unspecified; R10.20 Pelvic and perineal pain unspecified side; R94.31 Abnormal electrocardiogram [ECG] [EKG]
CPT/HCPCS: 80053; 84702; 85025; 93005

== ENCOUNTER 2025-06-08 06:23 | Inpatient (IN) | payer BC, SELFPAY ==
[2025-06-01 13:25] VITALS: BMI 28.5
[2025-06-08] VITALS (21 sets, daily range): BP systolic 114–138; BP diastolic 65–92; PULSE 93–108; RESP 15–18; TEMP 36.7–36.9; O2SAT 94–99
[2025-06-08] MEDS: LACTATED RINGERS 1000ML 1,000 ML 25 ML IV (06:41)
[2025-06-08] MEDS: SCOPOLAMINE 1.5MG/72HRS PATCH 1 EACH TD (06:42)
[2025-06-08] MEDS: CELECOXIB 100MG CAPSULE 400 MG PO (06:43)
[2025-06-08] MEDS: ACETAMINOPHEN 500MG TAB 1000 MG PO ×3 (06:44→19:59)
[2025-06-08] MEDS: GABAPENTIN 600MG TABLET 600 MG PO (06:44)
--- NOTE | 2025-06-08 07:25 | EXP.HP ---
History of Present Illness *Admission Date: 06/08/25 *Reason for visit:: AUB, enlarged fibroid uterus, pelvic pressure and pain *History of present illness: Ms Suzy Anaya is a 35 yo P000 who presents to [facility] for scheduled surgery. She complains of chronic pelvic pain and uterine fibroids. She has difficulty initiating urination and sometimes feels like she cannot completely empty her bladder. This occurs multiple times throughout the day. Periods are monthly and flow lasts about 10 days with 3 light days followed by 3 days of heavy bleeding and then back to light flow/spotting. She is not sexually active. She has never been . She has not taken hormones since 2011. She believes hormones caused anxiety when she took them. She still struggles with anxiety and depression. She is taking Lexapro and is doing well with it. Pelvic ultrasound 01/28/25 demonstrated UTERUS: 9.4cm x 8.1 cmx 8.1cm axial with a combined endometrial thickness of 12.7mm. Fibroid 1. 6.3 cm x 6.6 cm x 5.8 cm. Right side of uterus Fibroid 2. 5.2 cm x 5.0 cm x 6.2 cm. Left-side of uterus Fibroid 3. 3.0 cm x 3.3 cm x 4.4 cm. Left side of uterus The fibroids have increased in size since ultrasound in March 2024. Both ovaries are seen and appear normal. There are small follicles on each ovary. She tried Myfembree but experienced heavy bleeding and severe pelvic pain three weeks into treatment with Myfembree and continued to bleed. She also states Myfembree increased anxiety with lack of focus, and caused persistent fatigue with headaches. She requests definitive surgical intervention with hysterectomy. [facility] Disclaimer: The information contained in this section may have been updated after the patient was seen, as this information can be updated by other users. Medical History (Updated 06/08/25 @ 07:39 by Ashleigh Rodríguez DO) Pelvic pain in female Abnormal uterine bleeding (AUB) Pelvic pressure in female Generalized anxiety disorder Major depression, recurrent Voiding difficulty Fibroid uterus Fracture of left wrist Surgical History History of surgery on left wrist [place] teeth removed Family History Grandmother Family history of pancreatic cancer Mother Family history of [place] (myocardial infarction) Sister Family history of Stefan thyroiditis Social History Smoking Status: Never smoker second hand exposure: No alcohol intake: current substance use type: denies use current occupational status: employed and other Travel in the last 8 weeks?: None housing: house Have you lived/traveled outside US in past 30 days?: No Contact w/someone who lives/traveled outside US past 30 days?: No Exposure to someone with infectious disease in past 14 days?: No Do you have a fever (greater than 100.4 F or 38 C)?: No Have you tested positive for COVID-19?: No Exposed to someone with COVID-19 in past 14 days?: No Do you have a sore throat?: No Do you have a cough?: No Do you have any weakness?: No Do you have any diarrhea?: No Are you experiencing any unusual bleeding?: No Do you have any muscle aches/pain?: No Do you have any abdominal pain?: No Are you experiencing loss of taste or smell?: No Other Medical History Have you received the Flu Vaccine for this season: Yes Have you received the Pneumonia Vaccine: No Review of Systems Review of Systems Review of systems:: pertinent systems reviewed and negative unless documented below *Genitourinary Genitourinary: Reports abnormal vaginal bleeding, Reports pelvic pain and Reports urinary frequency Meds Home Medications and Allergies Home Medications ?Medication ?Instructions ?Recorded ?Confirmed ?Type omeprazole 20 mg capsule,delayed 20 mg PO DAILY GERD 07/20/19 06/08/25 History release hydroxyzine HCl 10 mg tablet 10 mg PO TID PRN Anxiety 03/30/25 06/08/25 History escitalopram oxalate 10 mg tablet 15 mg (1.5 x 10 mg) PO DAILY #45 04/22/25 06/08/25 Rx (Lexapro) tabs atomoxetine 25 mg capsule 25 mg PO DAILY #30 caps 05/31/25 06/08/25 Rx acetaminophen 500 mg tablet 500 mg PO Q6H PRN Moderate Pain 06/01/25 06/08/25 History (Acetaminophen Extra Strength) (Scale Score 5-6) albuterol sulfate 90 mcg/actuation 2 puff inhalation Q4-6H PRN SOA 06/01/25 06/08/25 History aerosol inhaler loratadine 10 mg tablet 10 mg PO DAILY 06/01/25 06/08/25 History naproxen 250 mg tablet 220 mg PO BID 06/01/25 06/08/25 History ondansetron 4 mg disintegrating 4 mg PO Q8H PRN Nausea 06/01/25 06/08/25 History tablet polyethylene glycol 3350 17 gram 17 g PO DAILY 06/01/25 06/08/25 History oral powder packet (Miralax) sennosides 8.6 mg-docusate sodium 1 tab-cap PO HS 06/01/25 06/08/25 History 50 mg tablet (Senna Plus) New Prescriptions to Start Prescriptions: Allergies Allergy/AdvReac Type Severity Reaction Status Date / Time No Known Allergies Allergy Verified 06/08/25 06:48 Exam Data for Last 24 hours Vital signs and Labs for Last 24 Hours: Temp Pulse Resp BP Pulse Ox O2 Del Method 98.5 F 108 H 18 132/92 H 98 Room Air 06/08/25 06:53 06/08/25 06:53 06/08/25 06:53 06/08/25 06:53 06/08/25 06:53 06/08/25 06:53 Laboratory Results - last 24 hr 06/08/25 06:35: Blood Type O Positive Constitutional Constitutional: no acute distress and cooperative *Routine HEENT Exam Head: Present normocephalic and atraumatic Eye: Absent conjunctivae pink ENT: Present mucous membranes moist *Routine Neck Exam Neck: Present full ROM *Routine Respiratory Exam Respiratory: Present CTA bilaterally and normal respiratory effort *Routine Cardiovascular Exam Cardiovascular: Present RRR *Routine Abdominal Exam Abdominal: Present soft; Absent tenderness, distended or guarding *Routine Rectal Exam Rectal:: deferred *Routine Genitalia Exam Genitalia:: normal female *Routine Extremities Exam Extremities: Present full ROM; Absent edema or calf tenderness *Routine Neurological Exam Neurological: Present alert, moving all extremities and normal speech Routine Psychiatric Exam Psychiatric: Present normal affect and cooperative Assessment and Plan *Assessment and plan (1) Abnormal uterine bleeding (AUB): Status: Acute Category: Medical Code(s): N93.9 - Abnormal uterine and vaginal bleeding, unspecified (2) Pelvic pressure in female: Status: Acute Category: Medical Code(s): R10.2 - Pelvic and perineal pain (3) Pelvic pain in female: Status: Acute Category: Medical Code(s): R10.20 - Pelvic and perineal pain unspecified side (4) Fibroid uterus: Status: Acute Qualifiers: Uterine leiomyoma location: unspecified location Qualified Code(s): D25.9 - Leiomyoma of uterus, unspecified Category: Medical Code(s): D25.9 - Leiomyoma of uterus, unspecified (5) Bulky or enlarged uterus: Status: Acute Category: Medical Code(s): N85.2 - Hypertrophy of uterus (6) Major depression, recurrent: Status: Acute Qualifiers: Active/Remission status: currently active Major depression episode severity: moderate Qualified Code(s): F33.1 - Major depressive disorder, recurrent, moderate Category: Medical Code(s): F33.9 - Major depressive disorder, recurrent, unspecified Plan Reviewed MEME, BS, possible bilateral oophorectomy, possible cystoscopy in detail. Discussed possible low vertical incision instead of Pfannenstiel. Discussed risks, benefits, alternatives, expectations and possible complications of surgery. Risks include but are not limited to bleeding; infection; damage to adjacent structures (bowel, bladder, nerves, blood vessels, etc) (possibly requiring further intervention and/or longer hospital stay); VTE; risks with anesthesia; and risk of . All questions addressed and answered. Patient voiced understanding of risks and possible complications. Patient desires to proceed with surgery. Consent form signed. Proceed with surgery as scheduled
--- NOTE | 2025-06-08 07:26 | P.PNANES_ITS ---
[facility] Disclaimer: The information contained in this section may have been updated after the patient was seen, as this information can be updated by other users. Medical History Abnormal uterine bleeding (AUB) Pelvic pressure in female Generalized anxiety disorder Major depression, recurrent Voiding difficulty Fibroid uterus Fracture of left wrist Surgical History History of surgery on left wrist [place] teeth removed Family History Grandmother Family history of pancreatic cancer Mother Family history of [place] (myocardial infarction) Sister Family history of Stefan thyroiditis Social History Smoking Status: Never smoker second hand exposure: No alcohol intake: current substance use type: denies use current occupational status: employed and other Travel in the last 8 weeks?: None housing: house Have you lived/traveled outside US in past 30 days?: No Contact w/someone who lives/traveled outside US past 30 days?: No Exposure to someone with infectious disease in past 14 days?: No Do you have a fever (greater than 100.4 F or 38 C)?: No Have you tested positive for COVID-19?: No Exposed to someone with COVID-19 in past 14 days?: No Do you have a sore throat?: No Do you have a cough?: No Do you have any weakness?: No Do you have any diarrhea?: No Are you experiencing any unusual bleeding?: No Do you have any muscle aches/pain?: No Do you have any abdominal pain?: No Are you experiencing loss of taste or smell?: No [facility] Anesthesia Checklist Patient Identification Patient Identification: Arm Band Structural Data Admitted From: Home Planned Operative Procedure/s: Total Abdominal Hysterectomy Consent for Planned Operative Procedure(s) Verified: Yes Verified Documents: Surgical Consent and History and Physical NPO Status Verified Time NPO: 00:00 Additional verifications Anesthesia Reactions: No Hx Blood Transfusions: No Blood Transfusion Reaction: No Airway Assessment Mallampati Score:: Class II C-Spine Mobility Assessed: Yes TMJ Mobility Assessed: Yes Dentition: Good Dentition Neurological Assessment Level of Consciousness: Awake, Alert and Appropriate Anesthesia Plan Anesthesia Risk discussed: Yes Anesthesia Plan: Verified ASA Class: II Anesthesia Type: General w/block (Bilateral TAP Block)
[2025-06-08] MEDS: METRONIDAZ/SOD CHL 500 MG/100 ML PIGGYBACK 100 MG IV ×2 (07:28→16:01)
[2025-06-08] MEDS: CEFAZOLIN 2GM VIAL 2 GM (07:35)
--- NOTE | 2025-06-08 08:41 | HMH.PHAINT1 ---
Pharmacy Intervention Comments: MEDICATION RECONCILIATION COMPLETED ON PATIENT USING EXTERNAL FILL HISTORY FROM PHARMACY. -PABLO RAMIREZ, JAMILD
--- NOTE | 2025-06-08 10:03 | EXP.ANES.I ---
[facility] Anesthesia Record Part I Anesthesia Record I Intake, IV Amount: 1,200 Hydration: Adequate Estimated blood loss (mL): 400 Urine output (mL): 200 Blood Products used (#): none Blood Pressure: 137/87 SaO2: 94 Pulse Rate: 107 Airway Patency: Patent Respiratory Rate: 18 Temperature: 98.1 F Patient is:: Drowsy and Stable Stable to PACU at:: 09:55
--- NOTE | 2025-06-08 10:21 | PC.NURSE ---
report received from JOANN Amanda PACU
--- NOTE | 2025-06-08 10:35 | SUR.PHASEI ---
1024- Patient VSS with no complaints of pain. Scant drainage noted to bottom end of dressing. Resting well with eyes closed. Detailed report called to JOANN Johnson. 1026- Patient trasported via bed to OB room 280. Bedside handoff to JOANN Johnson. Patient stable.
--- NOTE | 2025-06-08 10:45 | P.OP_ITS ---
Date of procedure: 06/08/25 Pre-op Diagnosis:: 1. Abnormal uterine bleeding 2. Chronic pelvic pain/pressure 3. Enlarged uterus 4. Fibroid uterus 5. History of depression Post-op Diagnosis:: 1. Abnormal uterine bleeding 2. Chronic pelvic pain/pressure 3. Enlarged uterus 4. Fibroid uterus 5. History of depression Procedure performed:: 1. Total Abdominal Hysterectomy. Fibroid uterus weighed 660 grams 2. Bilateral salpingectomy Surgeon:: Ashleigh Rodríguez DO Social Insurance Adviser(s):: Dread Carter MD [employer]OR[employer] SUPERINTENDENT:: Dustin Fox Anesthesia: GETA Estimated blood loss (mL): 400 Clinical Note:: Ms Suzy Anaya is a 35 yo P000 who presents to [facility] for scheduled surgery. She complains of chronic pelvic pain and uterine fibroids. She has difficulty initiating urination and sometimes feels like she cannot completely empty her bladder. This occurs multiple times throughout the day. Periods are monthly and flow lasts about 10 days with 3 light days followed by 3 days of heavy bleeding and then back to light flow/spotting. She is not sexually active. She has never been . She has not taken hormones since 2011. She believes hormones caused anxiety when she took them. She still struggles with anxiety and depression. She is taking Lexapro and is doing well with it. Pelvic ultrasound 01/28/25 demonstrated UTERUS: 9.4cm x 8.1 cmx 8.1cm axial with a combined endometrial thickness of 12.7mm. Fibroid 1. 6.3 cm x 6.6 cm x 5.8 cm. Right side of uterus Fibroid 2. 5.2 cm x 5.0 cm x 6.2 cm. Left-side of uterus Fibroid 3. 3.0 cm x 3.3 cm x 4.4 cm. Left side of uterus The fibroids have increased in size since ultrasound in March 2024. Both ovaries are seen and appear normal. There are small follicles on each ovary. She tried Myfembree but experienced heavy bleeding and severe pelvic pain three weeks into treatment with Myfembree and continued to bleed. She also states Myfembree increased anxiety with lack of focus, and caused persistent fatigue with headaches. She requests definitive surgical intervention with hysterectomy. Operative findings:: 1. On laparotomy, enlarged fibroid uterus noted. After hysterectomy, fibroid uterus weighed 660 grams 2. Grossly normal appearing bowel and ovaries. No evidence of adhesions or endometriosis Operative note:: Discussed risks, benefits, alternatives, expectations and possible complications of surgery. All questions addressed and answered. Patient wished to proceed with surgery. Patient was wheeled back to the operating room and placed under general anesthesia without difficulty. The patient received 2 grams of Ancef and 500 mg Metronidazole preoperatively. SCDs in place. [place] catheter was inserted and draining clear urine prior to the start of the procedure. Vaginal was prepped with Betadine. She was placed in the supine position. She was prepped and draped in normal sterile fashion. Attention was then turned to the abdomen. A midline vertical skin incision was made from just below umbilicus to 2 cm above pubic symphysis. This was carried through to underlying layer of fascia. Fascia was incised in midline, extended superiorly and inferiorly with Doran scissors. The retcus muscle was then in the midline and the peritoneum was grasped and entered sharply with Metzenbaum scissors. Peritoneal incision was then extended superiorly and infe riorly with good visualization of the bladder. O'Marky O'Whaley retractor was placed in the abdominal incision. Bowel was packed cephalad with warm moist laparotomy sponges. Large fundal fibroid was grasped with peritoneum covering fibroid and extending to pelvic side wall. Peritoneum covering fibroid was dissected off with blunt and sharp dissection freeing it from pelvic side wall. Double tooth tenaculum was used to grasp large fundal fibroid and fibroud uterus was able to be lifted out of the pelvis. Uterus was deviated to the left, right round ligament was identified and placed on stretch and incised between two clamps. The distal stump of the round ligament was suture ligated with 0 Vicryl suture. The proximal stump was held with a John clamp. The leaves of the broad ligament w ere opened both anteriorly and posteriorly. The uterus was retracted cephalad. The anterior leaf of the broad ligament was opened down to the vesicouterine fold. Same procedure was carried out on the contralateral side. The vesicouterine peritoneal fold was elevated, and the bladder was dissected off of the lower uterine segment with sharp and blunt dissection. The uterus was retracted toward the pubic symphysis and deviated to left side. A finger was inserted through the peritoneum of the posterior leaf of the broad ligament under the suspensory ligament of the ovary and fallopian tube. The mesosalpinx and suspensory ligament were doubly clamped, incised and tied with 0 Vicryl suture removing the fallopian tube but leaving the ovary in situ. The distal stump was doubly suture ligated. The same procedure was carried out on the contralateral side. The uterus was retracted cephalad and deviated to the right side. Uterine arteries were skeletonized. Two curved John clamps were placed at the junction of the lower uterine segment on the uterine vessels. An incision was made between the uterus and two clamps. The stump was doubly suture ligated with 0 Vicryl. The same procedure was carried out on the contralateral side. The uterus was held in traction in the cephalad position and pubovescial cervical fascia was dissected inferiorly. Two straight John clamps were applied to the cardinal ligament. Cardinal ligament was incised between the two clamps and the distal stump was ligated with 0 Vicryl suture. The same procedure was carried out on the contralateral side. Bilateral uterosacral ligaments were clamped between straight John clamps, incised, and suture ligated with 0 Vicryl suture. The lower uterine segment and upper vagina were palpated between the thumb and first finger of the surgeon's hand to ensure that the ligaments have been completely incised. The vagina was entered by a stab wound with a scalpel and cut circumferentially with Doran scissors. The uterus and bilateral fallopian tubes were removed. The edges of the vagina were grasped with straight John clamps. Vaginal cuff was closed in a running locking manner with 1 Vicryl suture. Pelvis was irrigated. Hemostasis was noted. Raw peritoneum noted between bladder and vagina. Surgicel powder was applied to vaginal cuff and bilateral pedicles. Hemostasis was noted. At this point all instruments and sponges were removed from the pelvis. Hemostasis was noted. The peritoneum was grasped with Jaky clamps x 3. The peritoneum was reapproximated with 0 Vicryl suture in a running stitch. The c orners of the fascia were grasped with John clamps, and the fascia was reapproximated with two # 1 Vicryl suture overlapped in the middle of vertical incision. The subcutaneous tissue was irrigated and reapproximated in two layers with 2-0 Vicryl. The skin was reapproximated with metal wilton. Telfa was placed over closed Pfannenstiel skin incision. Patient awoke from anesthesia without difficulty and was transferred to the recovery room in stable condition. Condition: stable Disposition: floor Specimens:: 1. Uterus and cervix 2. Bilateral fallopian tubes Complications:: None
[2025-06-08] MEDS: HYDROMORPHONE 2MG/ML SYRINGE 1 MG IV (11:03)
[2025-06-08] MEDS: LACTATED RINGERS 1000ML 1,000 ML 125 ML IV (11:04)
--- NOTE | 2025-06-08 12:31 | EXP.ANES.II ---
[facility] Anesthesia Record Part II Anesthesia Record Part II Discharge Time: 10:25 Destination: Obstetric PACU nurse assessment reviewed?: Yes Patient Condition:: Good Anesthesia Complications:: None Swallowing reflex intact?: Yes Airway Patency: Patent Cyanosis?: No Blood Pressure: 127/89 SaO2: 96 Respiratory Rate: 15 Pulse Rate: 102 Temperature: 98.1 F Mental Status: Alert & Oriented Pain level:: 0 Nausea and/or vomitting:: None Intake, IV Amount: 0 Hydration: Adequate
--- NOTE | 2025-06-08 13:37 | HMH.PHAAMS2 ---
- Antimicrobial Stewardship Review culture & sensitivity review Stewardship interventions: culture & sensitivity review (PATIENT ON ANCEF AND FLAGYL POST OP. )
[2025-06-08 14:35] LABS: Microscopic,Cath URINE MICROSCOPIC (MICROSCOPIC)
[2025-06-08] MEDS: KETOROLAC 30MG/ML VIAL 30 MG IV ×2 (15:27→21:33)
[2025-06-08] MEDS: OXYCODONE 5MG IMMEDIATE RELEASE TABLET 5 MG PO ×2 (15:27→20:00)
[2025-06-08 15:49] LABS: Appearance,Urine/Cath CLEAR (Clear); Bilirubin,Cath Negative (Negative); Blood, Urine/Cath Negative (Negative); Color,Urine/Cath YELLOW (Yellow); Glucose,Urine/Cath (UA) Negative (Negative); Ketones,Urine/Cath TRACE (Negative); Leukocyte Esterase,Cath Negative (Negative); Nitrate,Cath Negative (Negative); PH,Urine/Cath 6.5 (5.0-8.5); Protein,Urine/Cath Negative (Negative); Specific Gravity, Urine/Cath <= 1.005 (1.005-1.030); Urobilinogen,Cath 0.2 EU/dl (0.2)
--- NOTE | 2025-06-08 16:30 | PC.NURSE ---
Patient laying in bed, lung sounds clear bilaterally throughout, bowel sounds present in all quadrants, vitals have been stable today, pt has had adequate urine output this shift. abdominal dressing intact and dry, no new drainage noted. pt denies needs at this time
[2025-06-08 16:31] LABS: Bacteria,Urine/Cath TRACE /lpf; Squamous Epithelial Ur./Cath Occasional #/hpf (0-5)
[2025-06-08] MEDS: SENNOSIDES 8.6MG/DOCUSATE 50MG TABLET 1 TAB PO (17:25)
[2025-06-08] MEDS: SIMETHICONE 80MG CHEWABLE TABLET 160 MG PO (17:25)
--- NOTE | 2025-06-08 19:40 | PC.NURSE ---
[place] catheter removed with sterile technique, pt tolerated this well. Pt then ambualted to the bathroom and provided pericare. Pt's bed linen changed while she was up. Pt then ambulated back to bed and is sitting up at the bedside, pt tolerated this well. She is wearing an abdominal binder, pt denies any needs.
[2025-06-08] MEDS: POLYETHYLENE GLYCOL 3350 17 GM PACKET PO (21:31)
[2025-06-08] MEDS: LORATADINE 10MG TABLET 10 MG PO (21:32)
[2025-06-08] MEDS: ESCITALOPRAM 10MG TABLET 15 MG PO (21:32)
[2025-06-08] MEDS: PANTOPRAZOLE 40MG TABLET 40 MG PO (21:32)
[2025-06-09] MEDS: METRONIDAZ/SOD CHL 500 MG/100 ML PIGGYBACK 100 MG IV (00:05)
[2025-06-09 00:23] VITALS: BP 125/70; PULSE 93; RESP 16; TEMP 36.8; O2SAT 96
[2025-06-09 04:00] VITALS: BP 115/74; PULSE 91; RESP 16; TEMP 36.9; O2SAT 95
[2025-06-09] MEDS: KETOROLAC 30MG/ML VIAL 30 MG IV (04:12)
[2025-06-09 06:50] LABS: Hematocrit 30.4 % (37.0-47.0); Hemoglobin 9.3 g/dL (12.2-16.2); Immature Granulocytes % 0.3 %; Mean Corpuscular HGB Conc 30.6 g/dL (31.8-35.4); Mean Corpuscular Hemoglobin 28.5 pg (27.0-31.2); Mean Corpuscular Volume 93.3 fl (81-99); Nucleated Red Blood Cells % 0 %; Platelet Count 299 K/mm3 (142-424); Red Blood Count 3.26 M/mm3 (4.20-5.40); Red Cell Distribution Width-SD 55.7 fL; White Blood Count 11.5 K/mm3 (4.8-10.8)
[2025-06-09 07:00] LABS: Albumin Level 3.4 g/dl (3.5-5.0); Chloride 105 mmol/L (98-107); Potassium 3.4 mmoL/L (3.5-5.1); Sodium 141 mmol/L (136-145)
[2025-06-09 07:02] LABS: Blood Urea Nitrogen 5 mg/dl (7-17); Creatinine Clearance Estimated 154 mL/min (50-200); Creatinine,Serum 0.70 mg/dl (0.52-1.04); Estimated Glomerular Filt Rate 96 ml/min (>60); GFR (African American) 117 ML/MIN (>60)
[2025-06-09 07:03] LABS: Alanine Aminotransferase 20 U/L (12-78); Albumin/Globulin Ratio 1.3 (1.1-1.8); Alkaline Phosphatase 53 U/L (38-126); Anion Gap 12.4 mEq/L (5-15); Aspartate Amino Transferase 30 U/L (14-36); Bilirubin,Total 0.3 mg/dl (0.2-1.3); Calcium 7.8 mg/dl (8.4-10.2); Carbon Dioxide 27 mmol/L (22.0-30.0); Globulin 2.7 g/dL (1.3-3.2); Glucose 101 mg/dl (74-100); Total Protein,Serum 6.1 g/dl (6.3-8.2)
[2025-06-09] MEDS: ACETAMINOPHEN 500MG TAB 1000 MG PO ×3 (08:21→20:26)
[2025-06-09 08:28] VITALS: BP 128/69; PULSE 84; RESP 17; TEMP 36.5; O2SAT 97
--- NOTE | 2025-06-09 08:57 | P.PN_ITS ---
Subjective *Date: 06/09/25 *Time: 10:36 Interval history: POD # 1 s/p MEME, BS Sitting comfortably at bedside. Feeling well. Pain controlled. Tolerating regular diet. Voiding without difficulty and passing flatus. Denies fever/chills, chest pain and shortness of breath. No lightheadedness or dizziness. No lower extremity swelling. Medical Exam Vital signs and Labs for Last 24 Hours: Vital Signs Temp Pulse Pulse Resp BP BP Pulse Ox 06/09/25 08:28 97 06/09/25 08:28 97.7 F 84 17 128/69 97 06/09/25 08:28 06/09/25 06:15 06/09/25 06:00 06/09/25 05:00 06/09/25 04:00 95 06/09/25 04:00 98.4 F 91 H 16 115/74 95 06/09/25 04:00 06/09/25 03:00 06/09/25 02:00 06/09/25 01:00 06/09/25 00:23 98.3 F 93 H 16 125/70 96 06/09/25 00:00 06/08/25 23:00 06/08/25 22:00 06/08/25 21:00 06/08/25 20:00 06/08/25 19:40 98 06/08/25 19:40 98.4 F 102 H 18 126/74 98 06/08/25 18:00 06/08/25 17:30 98 H 18 135/80 98 06/08/25 16:30 98.2 F 100 H 17 137/87 96 06/08/25 16:00 06/08/25 15:30 93 H 18 130/80 98 06/08/25 14:30 06/08/25 14:30 108 H 17 138/77 97 06/08/25 13:30 98.0 F 94 H 18 125/75 97 06/08/25 13:00 93 H 17 128/73 95 06/08/25 12:32 15 06/08/25 12:30 96 H 18 125/80 99 06/08/25 12:00 06/08/25 12:00 98.4 F 95 H 17 133/79 99 06/08/25 11:30 98 H 16 121/77 99 06/08/25 11:30 98 H 16 121/77 99 06/08/25 11:15 98 H 17 118/70 98 06/08/25 11:00 95 H 18 114/65 97 06/08/25 10:45 101 H 17 116/70 96 06/08/25 10:40 06/08/25 10:40 98 06/08/25 10:40 98.0 F 106 H 17 138/81 98 06/08/25 10:30 98.0 F 106 H 17 138/81 98 06/08/25 10:25 98.1 F 102 H 15 127/89 96 06/08/25 10:15 98.1 F 105 H 16 131/88 96 06/08/25 10:05 98.1 F 107 H 18 137/87 06/08/25 10:05 98.1 F 108 H 16 136/89 95 06/08/25 09:55 98.1 F 106 H 16 137/87 95 O2 Del Method O2 Flow Rate 06/09/25 08:28 Room Air 06/09/25 08:28 Room Air 06/09/25 08:28 Room Air 06/09/25 06:15 Room Air 06/09/25 06:00 Room Air 06/09/25 05:00 Room Air 06/09/25 04:00 Room Air 06/09/25 04:00 Room Air 06/09/25 04:00 Room Air 06/09/25 03:00 Room Air 06/09/25 02:00 Room Air 06/09/25 01:00 Room Air 06/09/25 00:23 Room Air 06/09/25 00:00 Room Air 06/08/25 23:00 Room Air 06/08/25 22:00 Room Air 06/08/25 21:00 Room Air 06/08/25 20:00 Room Air 06/08/25 19:40 Room Air 06/08/25 19:40 Room Air 06/08/25 18:00 Room Air 06/08/25 17:30 Room Air 06/08/25 16:30 Room Air 06/08/25 16:00 Room Air 06/08/25 15:30 Room Air 06/08/25 14:30 Room Air 06/08/25 14:30 Room Air 06/08/25 13:30 Room Air 06/08/25 13:00 Room Air 06/08/25 12:32 06/08/25 12:30 Room Air 06/08/25 12:00 Room Air 06/08/25 12:00 Room Air 06/08/25 11:30 Nasal Cannula 2 06/08/25 11:30 Nasal Cannula 2 06/08/25 11:15 Nasal Cannula 2 06/08/25 11:00 Nasal Cannula 2 06/08/25 10:45 Room Air 06/08/25 10:40 Room Air 06/08/25 10:40 Room Air 06/08/25 10:40 Room Air 06/08/25 10:30 Room Air 06/08/25 10:25 Room Air 06/08/25 10:15 Room Air 06/08/25 10:05 06/08/25 10:05 Room Air 06/08/25 09:55 Room Air Intake and Output 06/08/25 06/09/25 06/09/25 23:59 07:59 15:59 Intake Total / 2009 150 / 150 Output Total 2250 / 2625 250 / 250 Balance -1590 / -615 -100 / -100 Intake: Intake, Oral Amount 560 / 560 Intake, Total IV Amount 100 / 250 150 / 150 Cefazolin Sodium 1 gm In 0.9 % 50 / 50 Sodium Chloride 50 ml @ 100 mls /hr IV Q8H YUSUF Rx#:[id number] Metronidaz/Sod Chl 500 mg In 100 / 100 100 / 100 100 ml @ 100 mls/hr IV Q8H YUSUF Rx#:[id number] Output: Output, Urine Amount 2250 / 2625 250 / 250 Laboratory Results - last 24 hr 06/08/25 07:30: Urine Color Yellow, Urine Appearance Clear, Urine pH 6.5, Ur Specific [place] <= 1.005, Urine Protein Negative, Urine Glucose (UA) Negative, Urine Ketones Trace, Urine Blood Negative, Urine Nitrate Negative, Urine Bilirubin Negative, Urine Urobilinogen 0.2, Ur Leukocyte Esterase Negative, Urine RBC None, Urine WBC None, Ur Squamous Epith Cells Occasional, Urine Ba cteria Trace 06/09/25 06:21: WBC 11.5 H, RBC 3.26 L, Hgb 9.3 L, Hct 30.4 L, MCV 93.3, MCH 28.5, MCHC 30.6 L, RDW 16.0, Plt Count 299, MPV 10.3, Neut % (Auto) 71.7, Lymph % (Auto) 16.1, [place] % (Auto) 11.7 H, Eos % (Auto) 0.1, Baso % (Auto) 0.1, Neut # (Auto) 8.3 H, Lymph # (Auto) 1.9, [place] # (Auto) 1.3 H, Eos # (Auto) 0.0, Baso # (Auto) 0.0, Sodium 141, Potassium 3.4 L, Chloride 105, Carbon Dioxide 27, Anion Gap 12.4, BUN 5 L, Creatinine 0.70, Estimated Creat Clear 154, Estimated GFR 96, Est GFR ( Amer) 117, Glucose 101 H, Calcium 7.8 L, Total Bilirubin 0.3, AST 30, ALT 20, Alkaline Phosphatase 53, Total Protein 6.1 L, Albumin 3.4 L, Globulin 2.7, Albumin/Globulin Ratio 1.3 I & O for Labs for Last 24 Hours: Intake & Output 06/06/25 06/07/25 06/08/25 06/09/25 23:59 23:59 23:59 23:59 Intake Total 2009 150 / 150 Output Total 2625 / 2625 250 / 250 Balance -615 / -615 -100 / -100 Constitutional: Present no acute distress and cooperative Head: Present atraumatic and normocephalic ENT: Present normal exam Neck: Present normal inspection and full ROM Respiratory: Present CTA bilaterally and normal respiratory effort Cardiac: Present Reg Rate and Rhythm GI: Present soft and normal bowel sounds; Absent distention, tenderness or guarding Comments:: Dressing over incision with no significant drainage Rectal (female): Present deferred (female): Present deferred Extremities: Present full ROM; Absent edema or calf tenderness Neuro: Present alert, awake and moves all extremities Assessment and Plan *Assessment and plan (1) S/P total abdominal hysterectomy: Problem Comment: 06/08/25 Bilateral salpingectomy performed at time of hysterectomy Status: Acute Category: Surgical Code(s): Z90.710 - Acquired absence of both cervix and uterus (2) Pelvic pain in female: Status: Acute Category: Medical Code(s): R10.20 - Pelvic and perineal pain unspecified side (3) Abnormal uterine bleeding (AUB): Status: Acute Category: Medical Code(s): N93.9 - Abnormal uterine and vaginal bleeding, unspecified (4) Pelvic pressure in female: Status: Acute Category: Medical Code(s): R10.2 - Pelvic and perineal pain (5) Fibroid uterus: Status: Acute Qualifiers: Uterine leiomyoma location: unspecified location Qualified Code(s): D25.9 - Leiomyoma of uterus, unspecified Category: Medical Code(s): D25.9 - Leiomyoma of uterus, unspecified (6) Voiding difficulty: Status: Acute Category: Medical Code(s): R39.198 - Other difficulties with micturition (7) Acute blood loss anemia: Status: Acute Category: Medical Code(s): D62 - Acute posthemorrhagic anemia Plan Feeling well postoperatively Continue routine postop care Encouraged increased ambulation AM Hgb 9.3 -- Venofer 200 mg IV x 1 dose Plan d/c home todmorrow
[2025-06-09] MEDS: IRON SUCROSE COMPLEX 200 MG in 0.9 % SODIUM CHLORIDE 100 ML 220 MG IV (11:25)
[2025-06-09] MEDS: ONDANSETRON 4MG/2ML VIAL 4 MG IV (11:29)
[2025-06-09] MEDS: IBUPROFEN 400 MG TABLET 800 MG PO ×2 (11:29→20:26)
--- NOTE | 2025-06-09 11:38 | PC.NURSE ---
pt showered and dressing removed from incision at this time, incision dry and clean, no redness noted, mild brusing noted around incision. pt denies needs
[2025-06-09] MEDS: OXYCODONE 5MG IMMEDIATE RELEASE TABLET 5 MG PO (14:30)
[2025-06-09 16:30] VITALS: BP 118/56; PULSE 97; RESP 18; TEMP 36.6; O2SAT 97
--- NOTE | 2025-06-09 16:30 | PC.NURSE ---
Pt has ambulated multiple times this shift to the bathroom and back, lung sounds clear bilaterally throughout, bowel sounds active in all quadrants. vitals have been stable this shift, see EMAR for medication administration this shift. pt voiding with out difficulty, pt passing gas with out difficulty. incision is clean and dry, not redness noted, brusing noted but still the same as this morning after dressing was removed. pts pain has been well controlled this shift. pt denies needs at this time
[2025-06-09] MEDS: SENNOSIDES 8.6MG/DOCUSATE 50MG TABLET 1 TAB PO (18:35)
[2025-06-09] MEDS: POLYETHYLENE GLYCOL 3350 17 GM PACKET PO (18:35)
[2025-06-09 19:40] VITALS: BP 132/72; PULSE 93; RESP 18; TEMP 37; O2SAT 97
[2025-06-09 20:00] VITALS: O2SAT 99
[2025-06-09] MEDS: LORATADINE 10MG TABLET 10 MG PO (20:26)
[2025-06-09] MEDS: PANTOPRAZOLE 40MG TABLET 40 MG PO (20:26)
[2025-06-09] MEDS: ESCITALOPRAM 10MG TABLET 15 MG PO (20:26)
[2025-06-09] MEDS: SIMETHICONE 80MG CHEWABLE TABLET 160 MG PO (20:31)
[2025-06-10 00:50] VITALS: BP 125/67; PULSE 92; RESP 18; TEMP 36.9; O2SAT 97
[2025-06-10] MEDS: ACETAMINOPHEN 500MG TAB 1000 MG PO ×2 (02:23→08:42)
[2025-06-10 04:30] VITALS: BP 129/80; PULSE 87; RESP 18; TEMP 36.5; O2SAT 96
[2025-06-10] MEDS: IBUPROFEN 400 MG TABLET 800 MG PO (04:35)
[2025-06-10 05:00] VITALS: O2SAT 100
[2025-06-10] MEDS: POLYETHYLENE GLYCOL 3350 17 GM PACKET PO (08:43)
[2025-06-10 08:45] VITALS: BP 128/77; PULSE 102; RESP 14; TEMP 36.7; O2SAT 97
--- NOTE | 2025-06-10 08:53 | P.DS_ITS ---
General Admission date:: 06/08/25 Discharge date: 06/10/25 HPI HPI HPI: Ms Suzy Anaya is a 35 yo P000 who presents to [facility] for scheduled surgery. She complains of chronic pelvic pain and uterine fibroids. She has difficulty initiating urination and sometimes feels like she cannot completely empty her bladder. This occurs multiple times throughout the day. Periods are monthly and flow lasts about 10 days with 3 light days followed by 3 days of heavy bleeding and then back to light flow/spotting. She is not sexually active. She has never been . She has not taken hormones since 2011. She believes hormones caused anxiety when she took them. She still struggles with anxiety and depression. She is taking Lexapro and is doing well with it. Pelvic ultrasound 01/28/25 demonstrated UTERUS: 9.4cm x 8.1 cmx 8.1cm axial with a combined endometrial thickness of 12.7mm. Fibroid 1. 6.3 cm x 6.6 cm x 5.8 cm. Right side of uterus Fibroid 2. 5.2 cm x 5.0 cm x 6.2 cm. Left-side of uterus Fibroid 3. 3.0 cm x 3.3 cm x 4.4 cm. Left side of uterus The fibroids have increased in size since ultrasound in March 2024. Both ovaries are seen and appear normal. There are small follicles on each ovary. She tried Myfembree but experienced heavy bleeding and severe pelvic pain three weeks into treatment with Myfembree and continued to bleed. She also states Myfembree increased anxiety with lack of focus, and caused persistent fatigue with headaches. She requests definitive surgical intervention with hysterectomy. Hospital Course Hospital Course Hospital Course: Suzy is a very pleasant 35-year-old who is postop day #2 from midline vertical total abdominal hysterectomy with bilateral salpingectomy. The patient is doing very well. Tolerating p.o. Ambulating. Voiding without dysuria. She is passing flatus. Patient desires discharge home and will be discharged, routine discharge was reviewed in detail and patient voiced understanding. Reviewed medications that she would be discharged home with. Postoperative appointment made for the patient. Date of procedure: 06/08/25 Pre-op Diagnosis:: 1. Abnormal uterine bleeding 2. Chronic pelvic pain/pressure 3. Enlarged uterus 4. Fibroid uterus 5. History of depression Post-op Diagnosis:: 1. Abnormal uterine bleeding 2. Chronic pelvic pain/pressure 3. Enlarged uterus 4. Fibroid uterus 5. History of depression Procedure performed:: 1. Total Abdominal Hysterectomy. Fibroid uterus weighed 660 grams 2. Bilateral salpingectomy Surgeon:: Ashleigh Rodríguez DO Plate Straightener(s):: Dread Carter MD DIRECTOR OF NURSING:: Dustin Fox Anesthesia: GETA Estimated blood loss (mL): 400 Clinical Note:: Ms Suzy Anaya is a 35 yo P000 who presents to [facility] for scheduled surgery. She complains of chronic pelvic pain and uterine fibroids. She has difficulty initiating urination and sometimes feels like she cannot completely empty her bladder. This occurs multiple times throughout the day. Periods are monthly and flow lasts about 10 days with 3 light days followed by 3 days of heavy bleeding and then back to light flow/spotting. She is not sexually active. She has never been . She has not taken hormones since 2011. She believes hormones caused anxiety when she took them. She still struggles with anxiety and depression. She is taking Lexapro and is doing well with it. Pelvic ultrasound 01/28/25 demonstrated UTERUS: 9.4cm x 8.1 cmx 8.1cm axial with a combined endometrial thickness of 12.7mm. Fibroid 1. 6.3 cm x 6.6 cm x 5.8 cm. Right side of uterus Fibroid 2. 5.2 cm x 5.0 cm x 6.2 cm. Left-side of uterus Fibroid 3. 3.0 cm x 3.3 cm x 4.4 cm. Left side of uterus The fibroids have increased in size since ultrasound in March 2024. Both ovaries are seen and appear normal. There are small follicles on each ovary. She tried Myfembree but experienced heavy bleeding and severe pelvic pain three weeks into treatment with Myfembree and continued to bleed. She also states Myfembree increased anxiety with lack of focus, and caused persistent fatigue with headaches. She requests definitive surgical intervention with hysterectomy. Operative findings:: 1. On laparotomy, enlarged fibroid uterus noted. After hysterectomy, fibroid uterus weighed 660 grams 2. Grossly normal appearing bowel and ovaries. No evidence of adhesions or endometriosis Operative note:: Discussed risks, benefits, alternatives, expectations and possible complications of surgery. All questions addressed and answered. Patient wished to proceed with surgery. Patient was wheeled back to the operating room and placed under general anesthesia without difficulty. The patient received 2 grams of Ancef and 500 mg Metronidazole preoperatively. SCDs in place. Glasgow catheter was inserted and draining clear urine prior to the start of the procedure. Vaginal was prepped with Betadine. She was placed in the supine position. She was prepped and draped in normal sterile fashion. Attention was then turned to the abdomen. A midline vertical skin incision was made from just below umbilicus to 2 cm above pubic symphysis. This was carried through to underlying layer of fascia. Fascia was incised in midline, extended superiorly and inferiorly with Doran scissors. The retcus muscle was then in the midline and the peritoneum was grasped and entered sharply with Metzenbaum scissors. Peritoneal incision was then extended superiorly and inferiorly with good visualization of the bladder. O'Marky O'Whaley retractor was placed in the abdominal incision. Bowel was packed cephalad with warm moist laparotomy sponges. Large fundal fibroid was grasped with peritoneum covering fibroid and extending to pelvic side wall. Peritoneum covering fibroid was dissected off with blunt and sharp dissection freeing it from pelvic side wall. Double tooth tenaculum was used to grasp large fundal fibroid and fibroud uterus was able to be lifted out of the pelvis. Uterus was deviated to the left, right round ligament was identified and placed on stretch and incised between two clamps. The distal stump of the round ligament was suture ligated with 0 Vicryl suture. The proximal stump was held with a John clamp. The leaves of the broad ligament were opened both anteriorly and posteriorly. The uterus was retracted cephalad. The anterior leaf of the broad ligament was opened down to the vesicouterine fold. Same procedure was carried out on the contralateral side. The vesicouterine peritoneal fold was elevated, and the bladder was dissected off of the lower uterine segment with sharp and blunt dissection. The uterus was retracted toward the pubic symphysis and deviated to left side. A finger was inserted through the peritoneum of the posterior leaf of the broad ligament under the suspensory ligament of the ovary and fallopian tube. The mesosalpinx and suspensory ligament were doubly clamped, incised and tied with 0 Vicryl suture removing the fallopian tube but leaving the ovary in situ. The distal stump was doubly suture ligated. The same procedure was carried out on the contralateral side. The uterus was retracted cephalad and deviated to the right side. Uterine arteries were skeletonized. Two curved John clamps were placed at the junction of the lower uterine segment on the uterine vessels. An incision was made between the uterus and two clamps. The stump was doubly suture ligated with 0 Vicryl. The same procedure was carried out on the contralateral side. The uterus was held in traction in the cephalad position and pubovescial cervical fascia was dissected inferiorly. Two straight John clamps were applied to the cardinal ligament. Cardinal ligament was incised between the two clamps and the distal stump was ligated with 0 Vicryl suture. The same procedure was carried out on the contralateral side. Bilateral uterosacral ligaments were clamped between straight John clamps, incised, and suture ligated with 0 Vicryl suture. The lower uterine segment and upper vagina were palpated between the thumb and first finger of the surgeon's hand to ensure that the ligaments have been completely incised. The vagina was entered by a stab wound with a scalpel and cut circumferentially with Doran scissors. The uterus and bilateral fallopian tubes were removed. The edges of the vagina were grasped with straight John clamps. Vaginal cuff was closed in a running locking manner with 1 Vicryl suture. Pelvis was irrigated. Hemostasis was noted. Raw peritoneum noted between bladder and vagina. Surgicel powder was applied to vaginal cuff and bilateral pedicles. Hemostasis was noted. At this point all instruments and sponges were removed from the pelvis. Hemostasis was noted. The peritoneum was grasped with Jaky clamps x 3. The peritoneum was reapproximated with 0 Vicryl suture in a running stitch. The corners of the fascia were grasped with John clamps, and the fascia was reapproximated with two # 1 Vicryl suture overlapped in the middle of vertical incision. The subcutaneous tissue was irrigated and reapproximated in two layers with 2-0 Vicryl. The skin was reapproximated with metal wilton. Telfa was placed over closed Pfannenstiel skin incision. Patient awoke from anesthesia without difficulty and was transferred to the recovery room in stable condition. Exam Data for Last 24 hours Vital signs and Labs for Last 24 Hours: Temp Pulse Resp BP Pulse Ox O2 Del Method O2 Flow Rate 97.7 F 87 18 129/80 100 Room Air 2 06/10/25 04:30 06/10/25 04:30 06/10/25 04:30 06/10/25 04:30 06/10/25 05:00 06/10/25 06:00 06/08/25 11:30 I & O for Last 24 hours: Intake & Output 06/07/25 06/08/25 06/09/25 06/10/25 23:59 23:59 23:59 23:59 Intake Total 2009 260 / 260 Output Total 2625 / 2625 1400 / 1400 0 / 0 Balance -615 / -615 -1140 / -1140 0 / 0 Narrative: Constitutional: no acute distress and cooperative Head: atraumatic and normocephalic Neck: Present normal inspection and full ROM Respiratory: CTA bilaterally and normal respiratory effort Cardiac: Reg Rate and Rhythm GI: soft and normal bowel sounds; Absent distention, tenderness or guarding. vertical incision. wilton noted. clean, dry and intact Extremities: Present full ROM; Absent edema or calf tenderness Neuro: Present alert, awake and moves all extremities Constitutional Constitutional: no acute distress *Routine HEENT Exam Head: Present normocephalic Eye: Present EOMI and PERRL ENT: Present mucous membranes moist *Routine Neck Exam Neck: Present supple; Absent lymphadenopathy *Routine Respiratory Exam Respiratory: Present CTA bilaterally *Routine Cardiovascular Exam Cardiovascular: Present RRR *Routine Abdominal Exam Abdominal: Present soft and normoactive bowel sounds; Absent tenderness *Routine Extremities Exam Extremities: Absent cyanosis, clubbing or edema *Routine Skin Exam Skin: Present warm; Absent rash *Routine Neurological Exam Neurological: Present alert and oriented X3 DS: Diagnosis Discharge Diagnosis (1) S/P total abdominal hysterectomy: Status: Acute Code(s): Z90.710 - Acquired absence of both cervix and uterus Problem details: 06/08/25 Bilateral salpingectomy performed at time of hysterectomy (2) Pelvic pain in female: Status: Acute Code(s): R10.20 - Pelvic and perineal pain unspecified side (3) Abnormal uterine bleeding (AUB): Status: Acute Code(s): N93.9 - Abnormal uterine and vaginal bleeding, unspecified (4) Pelvic pressure in female: Status: Acute Code(s): R10.2 - Pelvic and perineal pain (5) Fibroid uterus: Status: Acute Code(s): D25.9 - Leiomyoma of uterus, unspecified Qualifiers: Uterine leiomyoma location: unspecified location Qualified Code(s): D25.9 - Leiomyoma of uterus, unspecified (6) Voiding difficulty: Status: Acute Code(s): R39.198 - Other difficulties with micturition (7) Acute blood loss anemia: Status: Acute Code(s): D62 - Acute posthemorrhagic anemia Meds Home Medications and Allergies Home Medications ?Medication ?Instructions ?Recorded ?Confirmed ?Type omeprazole 20 mg capsule,delayed 20 mg PO DAILY GERD 0 07/20/19 06/08/25 History release hydroxyzine HCl 10 mg tablet 10 mg PO TIDP PRN Anxiety 03/30/25 06/08/25 History escitalopram oxalate 10 mg tablet 15 mg (1.5 x 10 mg) PO DAILY #45 04/22/25 06/08/25 Rx (Lexapro) tabs atomoxetine 25 mg capsule 25 mg PO DAILY #30 caps 08/2406/08/25 Rx acetaminophen 500 mg tablet 500 mg PO Q6HP PRN Moderat e Pain 06/01/25 06/08/25 History (Acetaminophen Extra Strength) (Scale Score 5-6) albuterol sulfate 90 mcg/actuation 2 puff inhalation Q 4HP PRN 06/01/25 06/08/25 History aerosol inhaler Shortness Of Breath loratadine 10 mg tablet 10 mg PO DAILY 06/01/2505/30 History naproxen 250 mg tablet 220 mg PO BID 06/01/2506/08 History ondansetron 4 mg disintegrating 4 mg PO Q6HP PRN Nause a 06/01/25 06/08/25 History tablet polyethylene glycol 3350 17 gram 17 g PO DAILY 5 06/08/25 History oral powder packet (Miralax) sennosides 8.6 mg-docusate sodium 1 tab-cap PO HS 09/2106/08/25 History 50 mg tablet (Senna Plus) acetaminophen 500 mg tablet 500 mg PO Q6H PRN fever or pain 06/10/25 Rx #30 tabs ferrous sulfate 325 mg (65 mg 325 mg PO DAILY #30 tabs 06/10/25 Rx iron) tablet,delayed release ibuprofen 800 mg tablet 800 mg PO Q8H PRN pain #60 t abs 06/10/25 Rx oxycodone 5 mg tablet 5 mg PO Q8H PRN pain #20 tab s 06/10/25 Rx sennosides 8.6 mg tablet (Senna 8.6 mg PO BIDP PRN Con stipation 06/10/25 Rx Lax) #60 tabs simethicone 125 mg tablet 125 mg PO DAILY PRN abdomina l 06/10/25 Rx distention #60 tabs New Prescriptions to Start Prescriptions: acetaminophen Daniel,Ginger ferrous sulfate Daniel,Ginger ibuprofen Daniel,Ginger oxycodone Daniel,Ginger sennosides [Senna Lax] Daniel,Ginger simethicone Daniel,Ginger Allergies Allergy/AdvReac Type Severity Reaction Status Date / Time No Known Allergies Allergy Verified 06/08/25 06:48 Discharge Plan Disposition Patient Disposition: Home, Self-Care Discharge Order Discharge Orders: Discharge Order (Routine); Ordered 06/10/25 Ordered By: Ginger Sanchez Follow up Plan Follow up with: Ashleigh Rodríguez DO [Staff Physician, [employer]] - 06/21/25 2:15 pm Prescriptions/Medication Reconciliation: New acetaminophen 500 mg tablet 500 mg PO Q6H PRN (Reason: fever or pain) Qty: 30 3RF ferrous sulfate 325 mg (65 mg iron) tablet,delayed release (DR/EC) 325 mg PO DAILY Qty: 30 3RF sennosides [Senna Lax] 8.6 mg Tablet 8.6 mg PO BIDP PRN (Reason: Constipation) Qty: 60 2RF ibuprofen 800 mg tablet 800 mg PO Q8H PRN (Reason: pain) Qty: 60 2RF oxycodone 5 mg tablet 5 mg PO Q8H PRN (Reason: pain) Qty: 20 0RF simethicone 125 mg tablet 125 mg PO DAILY PRN (Reason: abdominal distention) Qty: 60 2RF Continued albuterol sulfate 90 mcg/actuation HFA aerosol inhaler 2 puff inhalation Q4HP PRN (Reason: Shortness Of Breath) loratadine 10 mg tablet 10 mg PO DAILY omeprazole 20 mg capsule,delayed release(DR/EC) 20 mg PO DAILY Patient Comments: TAKE 1 CAPSULE BY MOUTH ONCE DAILY hydroxyzine HCl 10 mg tablet 10 mg PO TIDP PRN (Reason: Anxiety) escitalopram oxalate [Lexapro] 10 mg tablet 15 mg PO DAILY Qty: 45 2RF atomoxetine 25 mg capsule 25 mg PO DAILY Qty: 30 2RF naproxen 250 mg Tablet 220 mg PO BID acetaminophen [Acetaminophen Extra Strength] 500 mg Tablet 500 mg PO Q6HP PRN (Reason: Moderate Pain (Scale Score 5-6)) ondansetron 4 mg tablet,disintegrating 4 mg PO Q6HP PRN (Reason: Nausea) polyethylene glycol 3350 [Miralax] 17 gram Powder In Packet 17 g PO DAILY sennosides-docusate sodium [Senna Plus] 8.6-50 mg Tablet 1 tab-cap PO HS Problem Reconciliation Problems Reviewed?: Yes Patient Discharge Instructions ACTIVITY: Continue current activity DIET: regular diet Additional Instructions: Hysterectomy Discharge You had a R total abdominal hysterectomy, and bilateral salpingectomy. This means your uterus, cervix, and both fallopian tubes were removed. Removing your fallopian tubes decreases your lifetime risk of ovarian cancer. There were no complications with your surgery. Several large fibroids were removed and images were provided to you. I have called several medications in for you and they are detailed below as well as discharge instructions. If you have any questions, please call the office. You will follow-up in office for a postop visit at 1 weeks and at 6 weeks. At your 6-week postop appointment you will have a pelvic exam to ensure your cuff is healing well. Activity: - No lifting more than 10 lbs for 6 weeks. - No driving while you are taking narcotic pain medication. Wound care - You have you have wilton closing your skin incision and these will be removed at your postoperative visit. - Keep your wound clean and dry, ok to wash with soap and water but pat thoroughly dry Medications: - Ibuprofen (a nonsteroidal anti-inflammatory) for pain. Please take the ibuprofen scheduled for the first 2-3 days as this will help control your pain. Ibuprofen dosing should not exceed 800 mg every 8 hours - Acetaminophen (Tylenol) for discomfort. Please take Tylenol scheduled for the first 2 to 3 days. Tylenol dosing should not exceed 1000 mg every 6 hours. Please do not consume more than 4000 mg in a 24-hour. - Oxycodone (a narcotic pain medication) use the narcotic pain medication for breakthrough or severe pain. You will want to stop the narcotic pain medication first. Narcotic pain medication can be habit forming so please only use this medication if you need it. This pain medication is also associated with constipation please remember to increase your fiber intake, and water intake. I have also given you a stool softener. You should not take more than 1-2 5 mg tablets every 6 hours for pain that rates greater than 6. - Senna (a stool softener) use this medication for constipation as needed. Narcotics can increase your risk for constipation - Simethicone: a gas medication for bloating and gas pain you may experience in the next 1-2 weeks. Please call the office or return to the ER if you have any of the followin. bleeding more than 1 pad an hour for 2 hours 2. pain that does not respond to your narcotic pain medication 3. dizziness or lightheadedness such that you lose consciousness 4. abnormal discharge that looks like pus from your incisions Questions or concerns: It is my privilege to be a part of your [employer] care team. Please let me know if you have other questions or concerns. Ginger Sanchez DO [facility] Specialist [place], [place] [address] Print Language: Slovak Providers Primary Care Provider: Provider,Referral Admit Provider: Ashleigh Rodríguez Attending Provider: Ashleigh Rodríguez
== END 2025-06-10 12:50 | disposition home or self-care (01) | DRG 742 ==
LOC: OB 06-09 06:17
PROVIDERS: Admitting Provider Obstetrics & Gynecology; Visit Provider Obstetrics & Gynecology
PROC: 0UT90ZZ Resection of Uterus, Open Approach (ICD-10-PCS; CPT 58150; principal; 2025-06-08 07:30)
DX: D25.9 Leiomyoma of uterus, unspecified (principal); D62 Acute posthemorrhagic anemia; F33.1 Major depressive disorder, recurrent, moderate; N85.2 Hypertrophy of uterus; F41.9 Anxiety disorder, unspecified; R39.198 Other difficulties with micturition; Z79.899 Other long term (current) drug therapy
CPT/HCPCS: 36415; 51702; 80053; 81001; 85025; 86850; J0665; J0666; J0690; J1100; J1171; J1756; J1836; J1885; J2003; J2250; J2405; J2704; J3010; J7120